=== PATIENT | female | born 1980 | race Caucasian/White ===

== ENCOUNTER 2022-12-28 08:53 | Outpatient (OUT) | payer BC, SELFPAY ==
[2022-12-28 09:15] LABS: Basophils Absolute Auto 0.1 10^3/uL (0.0-0.1); Basophils Percent Auto 0.6 % (0.2-2.0); Eosinophils Absolute Auto 0.2 10^3/uL (0.0-0.7); Eosinophils Percent Auto 2.2 % (0.9-7.0); Hematocrit 43.9 % (36.0-48.0); Immature Granulocytes Abs Auto 0.02 10^3/uL (0.00-0.03); Immature Granulocytes Pct Auto 0.2 % (0.0-0.5); Lymphocytes Absolute Auto 3.6 10^3/uL (1.2-3.8); Lymphocytes Percent Auto 44.2 % (20.5-60.0); Mean Corpuscular HGB Conc 34.2 g/dL (29.9-35.2); Mean Corpuscular Hemoglobin 28.8 pg (26.7-34.0); Mean Corpuscular Volume 84.3 fL (81.0-99.0); Mean Platelet Volume 10.2 fL (9.5-13.5); Monocytes Absolute Auto 0.4 10^3/uL (0.3-0.8); Monocytes Percent Auto 5.1 % (1.7-12.0); Neutrophils Absolute Auto 3.8 10^3/uL (1.4-6.5); Neutrophils Percent Auto 47.7 % (43.0-75.0); Platelet Count 244 10^3/uL (150-450); Red Blood Count 5.21 10^6/uL (4.20-5.40); Red Cell Distribution Width 12.8 % (11.0-15.0)
[2022-12-28 10:08] LABS: Alanine Aminotransferase 22 U/L (14-59); Albumin Globulin Ratio 0.9; Albumin Level 3.8 g/dL (3.4-5.0); Alkaline Phosphatase 77 U/L (46-116); Anion Gap 12.3; Aspartate Amino Transferase 16 U/L (15-37); BUN Creatinine Ratio 13.2; Bilirubin Total 0.6 mg/dL (0.2-1.0); Calcium 9.1 mg/dL (8.5-10.1); Chloride 102 mmol/L (98-107); Chol HDL Ratio 4.7; Cholesterol 214 mg/dL (<=200); Estimated GFR (African America >60 (>=60); Estimated GFR (Non-African Ame >60 (>=60); Glucose 99 mg/dL (74-106); HDL Cholesterol 46 mg/dL (40-60); Potassium 4.3 mmol/L (3.5-5.1); Sodium 136 mmol/L (136-145); Thyroid Stimulating Hormone 1.067 uIU/mL (0.358-3.740); Total Protein 7.8 g/dL (6.4-8.2); Triglycerides 349 mg/dL (<=150); VLDL CHOLESTEROL 69.8 mg/dL
[2022-12-28 12:10] LABS: Estimated Average Glucose 100 mg/dL; Glycohemoglobin A1C 5.1 % (4.5-6.2)
== END 2022-12-28 08:54 | disposition home or self-care (01) ==
LOC: LAB 08:53
PROVIDERS: PCP Family Medicine; Visit Provider Family Medicine
DX: Z00.00 Encounter for general adult medical examination without abnormal findings (principal)
CPT/HCPCS: 36415; 80053; 80061; 83036; 84443; 85025

== ENCOUNTER 2023-02-12 10:50 | Outpatient (OUT) | payer BC, SELFPAY ==
--- NOTE | 2023-02-12 | MM_ITS ---
Patient: FER PRATER Exam Date: 02/12/2023 : 1980 Gender:F Ordering : DR Ronel Molina M.D. Admission #: [id number] Family : Order #: [id number] CLICK HERE TO VIEW EXAM RADIOLOGY REPORT PROCEDURE: MM TOMOSYNTHESIS SCREENING BI COMPARISON: MAMMO POST BIOPSY RIGHT, 09/14/2021. MG MAMM DX 3D RT CAD, 04/25/2022. INDICATIONS: Z12.31 Calculator Name NCI Breast Cancer Risk Assessment Tool 5 Year Breast Cancer Risk 2.90% Lifetime Breast Cancer Risk 29.10% Personal Breast Cancer No Personal Ovarian Cancer No Treatments None Family Cancers Mother with breast cancer at age 72; Aunt-maternal with breast cancer at age 54; Aunt-maternal with pancreatic cancer at age 65. LOCATION: [facility] BREAST COMPOSITION: Extremely dense, which lowers the sensitivity of mammography. FINDINGS: DIAGNOSTIC CATEGORY 2--BENIGN FINDING. NO CHANGE FROM COMPARISON. Scattered benign-appearing calcifications are present. Scattered benign-appearing lymph nodes are present. RIGHT BREAST: No significant suspicious finding. LEFT BREAST: No significant suspicious finding. RECOMMENDATIONS: ROUTINE MAMMOGRAM AND CLINICAL EVALUATION IN 12 MONTHS. PLEASE NOTE: A NORMAL MAMMOGRAM DOES NOT EXCLUDE THE POSSIBILITY OF BREAST CANCER. A CLINICALLY SUSPICIOUS PALPABLE LUMP SHOULD BE BIOPSIED. Dictated by: Elliott Christianson MD on 02/12/2023 at 13:03 Approved by: Elliott Christianson MD on 02/12/2023 at 13:15
== END 2023-02-12 10:51 | disposition home or self-care (01) ==
LOC: MAMMO 10:50
PROVIDERS: PCP Family Medicine; Visit Provider Family Medicine
DX: Z12.31 Encounter for screening mammogram for malignant neoplasm of breast (principal); Z80.3 Family history of malignant neoplasm of breast; Z80.0 Family history of malignant neoplasm of digestive organs
CPT/HCPCS: 77063; 77067

== ENCOUNTER 2024-03-13 08:56 | Outpatient (OUT) | payer OTHER, SELFPAY ==
--- NOTE | 2024-03-13 09:00 | MM_ITS ---
Patient Name: FER PRATER MR#: [id number] : 1980 Exam Date: 03/13/2024 Ordering Doctor: DR Ronel Molina M.D. RADIOLOGY REPORT PROCEDURE: MM TOMOSYNTHESIS SCREENING BI COMPARISON: MG MAMM DX 3D RT CAD, 04/25/2022. MM TOMOSYNTHESIS SCREENING BI, 02/12/2023. INDICATIONS: Screening Calculator Name NCI Breast Cancer Risk Assessment Tool 5 Year Breast Cancer Risk 3.50% Lifetime Breast Cancer Risk 28.30% Personal Breast Cancer No Personal Ovarian Cancer No Treatments None Family Cancers Mother with breast cancer at age 72; Aunt-maternal with breast cancer at age 54; Aunt-maternal with pancreatic cancer at age 65. LOCATION: [facility] BREAST COMPOSITION: The breasts are extremely dense, which lowers the sensitivity of mammography. FINDINGS: DIAGNOSTIC CATEGORY 2--BENIGN FINDING. NO CHANGE FROM COMPARISON. Scattered benign-appearing calcifications are present. Scattered benign-appearing lymph nodes are present. RIGHT BREAST: No significant suspicious finding. LEFT BREAST: No significant suspicious finding. RECOMMENDATIONS: ROUTINE MAMMOGRAM AND CLINICAL EVALUATION IN 12 MONTHS. PLEASE NOTE: A NORMAL MAMMOGRAM DOES NOT EXCLUDE THE POSSIBILITY OF BREAST CANCER. A CLINICALLY SUSPICIOUS PALPABLE LUMP SHOULD BE BIOPSIED. Dictated by: Elliott Christianson MD on 03/13/2024 at 10:22 Approved by: Elliott Christianson MD on 03/13/2024 at 10:29
== END 2024-03-13 08:57 | disposition home or self-care (01) ==
LOC: MAMMO 08:56
PROVIDERS: PCP Family Medicine; Visit Provider Family Medicine
DX: Z12.31 Encounter for screening mammogram for malignant neoplasm of breast (principal); Z80.3 Family history of malignant neoplasm of breast; Z80.8 Family history of malignant neoplasm of other organs or systems
CPT/HCPCS: 77063; 77067

== ENCOUNTER 2024-03-23 08:32 | Emergency (ER) | payer OTHER, SELFPAY ==
[2024-03-23 08:35] VITALS: BP 134/89; PULSE 118; TEMP 37.1; O2SAT 100; BMI 29.0
--- OUTSIDE RECORDS SUMMARY | 2024-03-23 08:54 | XMS_ITS | CCD ---
Author Organization [facility] Care Team Providers Care Health Physics Technician Name Role Phone DR RONEL MOLINA Attending Unavailable Odell, DR Santiago Consulting Unavailable TRACY, DR RONEL Nugent Primary Care Unavailable TRACY, DR RONEL Nugent Admitting Unavailable TRACY, DR RONEL Nugent Consulting Unavailable TRACY, DR RONEL Nugent Admitting Unavailable TRACY, DR RONEL Nugent Attending Unavailable Odell, DR Santiago Consulting Unavailable TRACY, DR RONEL Nugent Primary Care Unavailable TRACY, DR RONEL Nugent Consulting Unavailable TRACY, DR RONEL Nugent Referring Unavailable TRACY, DR RONEL Nugent Attending Unavailable Odell, DR Santiago Consulting Unavailable TRACY, DR RONEL Nugent Primary Care Unavailable TRACY, DR RONEL Nugent Admitting Unavailable TRACY, DR RONEL Nugent Consulting Unavailable Medications Current Medications Medication Drug Class(es) Dates Sig (Normalized) Sig (Original) ibuprofen 800 mg oral tablet (1 source) Nonsteroidal Anti-inflammatory Drug Start: 02-28-2024 take 1 tablet by mouth every eight hours at mealtime as needed Ibuprofen Active 1 TAB PO Every 8 hours February 28, 2024 12:00am FreeTextSi tablet with food or milk as needed Orally every 8 hrs; Note: Source Status: Start; Refills: 2; Provider: Tracy Nugent Diiozkpiqtqp-Fi-Ai on-Minerals (Women's Daily Formula) 27-0.4 mg tablet (1 source) Start: 02-28-2024 take 1 tablet by mouth once daily Ohiofygcsseb-Mb-E geovany-Minerals (Women's Daily Formula) 27-0.4 mg tablet Active TAB PO February 28, 2024 12:00am Problems Active Problems Problem Classification Problem Date Documented Da te Episodic/Chronic Other screening for suspected conditions (not mental disorders or infectious disease) (6 sources) Other abnormal and inconclusive findings on diagnostic imaging of breast; Translations: [Patient encounter status] Onset: 04-25-2022 Episodic Past or Other Problems Problem Classification Problem Date Documented Da te Episodic/Chronic Nonmalignant breast conditions (6 sources) Disorder of breast, unspecified; Translations: [Other specified disorders of breast] Onset: 09-12-2021 Episodic Results Test Name Value Interpretation Reference Range Facil ity MG MAMM DX 3D RT CADon 04-25 MG MAMM DX 3D RT CAD Patient: FER PRATER Exam Date: 04/25/2022 : 1980 Gender:F Ordering : DR RONEL MOLINA M.D. Admission #: [id number] Family : Order #: [id number] CLICK HERE TO VIEW EXAM RADIOLOGY REPORT PROCEDURE: MAMMOGRAM DIAGNOSTIC 3D RIGHT CAD, 04/25/2022, 13:46 ULTRASOUND BREAST RIGHT LIMITED, 04/25/2022, 14:36 COMPARISON: US BREAST RIGHT LIMITED, 09/08/2021. MG MAMM DIAGNOSTIC 3D TATE CAD, 09/08/2021. US BREAST RIGHT LIMITED, 07/14/2015. MAMMO POST BIOPSY RIGHT, 09/14/2021. INDICATIONS: Abnormal findings on diagnostic imaging of breast Calculator Name NCI Breast Cancer Risk Assessment Tool 5 Year Breast Cancer Risk 2.90% Lifetime Breast Cancer Risk 29.10% Personal Breast Cancer No Personal Ovarian Cancer No Treatments None Family Cancers Mother with breast cancer at age 72; Aunt-maternal with breast cancer at age 54; Aunt-maternal with pancreatic cancer at age 65. LOCATION: [facility] BREAST COMPOSITION: Extremely dense, which lowers the sensitivity of mammography. FINDINGS: DIAGNOSTIC CATEGORY 2--BENIGN FINDING: RIGHT BREAST: No significant suspicious finding. Stable biopsy marker clip within the lower-outer quadrant Ultrasound evaluation demonstrates a stable hypoechoic cyst and adjacent hypoechoic lesion/complex cyst with biopsy marker clip; not appreciably changed. Pathology was benign. Annual screening mammography recommended. RECOMMENDATIONS: ROUTINE MAMMOGRAM AND CLINICAL EVALUATION IN 12 MONTHS. PLEASE NOTE: A NORMAL MAMMOGRAM DOES NOT EXCLUDE THE POSSIBILITY OF BREAST CANCER. A CLINICALLY SUSPICIOUS PALPABLE LUMP SHOULD BE BIOPSIED. Dictated by: Jack Bain M.D. on 04/25/2022 at 14:53 Approved by: Jack Bain M.D. on 04/25/2022 at 14:56 Normal [facility] US BREAST RIGHT LIMITEDon US BREAST RIGHT LIMITED Patient: FER PRATER Exam Date: 04/25/2022 : 1980 Gender:F Ordering : DR RONEL MOLINA M.D. Admission #: [id number] Family : Order #: [id number] CLICK HERE TO VIEW EXAM RADIOLOGY REPORT PROCEDURE: MAMMOGRAM DIAGNOSTIC 3D RIGHT CAD, 04/25/2022, 13:46 ULTRASOUND BREAST RIGHT LIMITED, 04/25/2022, 14:36 COMPARISON: US BREAST RIGHT LIMITED, 09/08/2021. MG MAMM DIAGNOSTIC 3D TATE CAD, 09/08/2021. US BREAST RIGHT LIMITED, 07/14/2015. MAMMO POST BIOPSY RIGHT, 09/14/2021. INDICATIONS: Abnormal findings on diagnostic imaging of breast Calculator Name NCI Breast Cancer Risk Assessment Tool 5 Year Breast Cancer Risk 2.90% Lifetime Breast Cancer Risk 29.10% Personal Breast Cancer No Personal Ovarian Cancer No Treatments None Family Cancers Mother with breast cancer at age 72; Aunt-maternal with breast cancer at age 54; Aunt-maternal with pancreatic cancer at age 65. LOCATION: [facility] BREAST COMPOSITION: Extremely dense, which lowers the sensitivity of mammography. FINDINGS: DIAGNOSTIC CATEGORY 2--BENIGN FINDING: RIGHT BREAST: No significant suspicious finding. Stable biopsy marker clip within the lower-outer quadrant Ultrasound evaluation demonstrates a stable hypoechoic cyst and adjacent hypoechoic lesion/complex cyst with biopsy marker clip; not appreciably changed. Pathology was benign. Annual screening mammography recommended. RECOMMENDATIONS: ROUTINE MAMMOGRAM AND CLINICAL EVALUATION IN 12 MONTHS. PLEASE NOTE: A NORMAL MAMMOGRAM DOES NOT EXCLUDE THE POSSIBILITY OF BREAST CANCER. A CLINICALLY SUSPICIOUS PALPABLE LUMP SHOULD BE BIOPSIED. Dictated by: Jack Bain M.D. on 04/25/2022 at 14:53 Approved by: Jack Bain M.D. on 04/25/2022 at 14:56 Normal [facility] MAMMO POST BIOPSY RIGHTon MAMMO POST BIOPSY RIGHT Patient: FER PRATER Exam Date: 09/14/2021 : 1980 Gender:F Ordering : DR RONEL MOLINA M.D. Admission #: [id number] Family : Order #: [id number] CLICK HERE TO VIEW EXAM This report includes an Addendum and supersedes previous reports for this exam. RADIOLOGY REPORT PROCEDURE: MAMMOGRAM POST BIOPSY IMAGES COMPARISON: Ultrasound right breast August 31, 2021, ultrasound right breast biopsy August 16, 2021, diagnostic mammography September 08, 2021. INDICATIONS: Mammographic breast mass BREAST COMPOSITION: Extremely dense, which lowers the sensitivity of mammography. FINDINGS: BIOPSY MARKER: A metallic marker has been placed in the targeted location within the lower-outer quadrant of the right breast. BREAST FINDINGS: Expected post biopsy findings. RECOMMENDATIONS: Dictated by: Jack Bain M.D. on 09/14/2021 at 10:09 Approved by: Jack Bain M.D. on 09/14/2021 at 10:10 ADDENDUM: FINDINGS: DIAGNOSTIC CATEGORY 3--PROBABLY BENIGN FINDING. THE FOLLOWING FINDING(S) HAS A HIGH PROBABILITY OF A BENIGN ETIOLOGY: RECOMMENDATIONS: SHORT TERM FOLLOW-UP DIAGNOSTIC MAMMOGRAM RIGHT BREAST IN 6 MONTHS. Dictated by: Jack Bain M.D. on 09/20/2021 at 12:07 Approved by: Jack Bain M.D. on 09/20/2021 at 12:07 Normal [facility] US VAC ASST BX BRST RT W CLI Riley 09-14-2021 US VAC ASST BX BRST RT W CLIP Patient: FER PRATER Exam Date: 09/14/2021 : 1980 Gender:F Ordering : DR RONEL MOLINA M.D. Admission #: [id number] Family : Order #: [id number] CLICK HERE TO VIEW EXAM This report includes an Addendum and supersedes previous reports for this exam. RADIOLOGY REPORT PROCEDURE: ULTRASOUND BIOPSY VACCUUM ASSISTED RIGHT WITH CLIP COMPARISON: Ultrasound breast right limited September 08, 2021 INDICATIONS: Mammographic breast mass DESCRIPTION: After obtaining informed consent, a vacuum assisted ultrasound-guided biopsy was performed in the usual sterile manner. The location of the biopsy was then marked as indicated below. FINDINGS: RECOMMENDATIONS: SPECIMEN #, LOCATION: 5 core specimens; right breast 8 o'clock complex cyst. BIOPSY NEEDLE: 13 gauge Elite (r) vacuum core biopsy needle. MARKERS(S) PLACED: A single metallic marker was placed in the appropriate targeted location. MEDICATION: Buffered 1% lidocaine with epinephrine administered locally. COMPLICATIONS: None. PATHOLOGY LAB: Pending. CONCLUSION: 1. Uneventful ultrasound-guided breast biopsy. 2. Pathology results are pending. 3. Biopsy marker clip is approximately 1.5 cm away from the biopsied lesion, which is still readily visible (clip moved away from lesion when pressure was released from breast tissue). An addendum to this report will be provided after pathology results are available. Dictated by: Jack Bain M.D. on 09/14/2021 at 10:11 Approved by: Jack Bain M.D. on 09/14/2021 at 10:14 ADDENDUM: Final pathologic diagnosis: Negative for malignancy. Breast parenchyma with fibrocystic change and associated microcalcifications. This report was transmitted to the referring physician's office on September 19, 2021, and the office called to confirm receipt. Dictated by: Jack Bain M.D. on 09/20/2021 at 12:05 Approved by: Jack Bain M.D. on 09/20/2021 at 12:06 Normal [facility] CBC AUTO DIFFon 09-08-2021 BASO # 0.1 103/ul Normal 0.0-0.1 [facility] Comment on above: Performed By: #### T SH, CMP, LIPID #### [facility] [address] [address] [address] Valery Walker Basophils/100 WBC (Bld) 0.6 % Normal 0.2-2.0 [facility] Comment on above: Performed By: #### T SH, CMP, LIPID #### [facility] [address] [address] [address] Valery Walker EO # 0.2 103/ul Normal 0.0-0.7 [facility] Comment on above: Performed By: #### T SH, CMP, LIPID #### [facility] [address] [address] [address] Valery Walker Eosinophils/100 WBC (Bld) 2.8 % Normal 0.9-7.0 [facility] Comment on above: Performed By: #### T SH, CMP, LIPID #### [facility] [address] [address] [address] Valery Walker Erythrocyte distribution width (RBC) [Ratio] 13.6 % Normal 11.0-15.0 [facility] Comment on above: Performed By: #### T SH, CMP, LIPID #### [facility] [address] [place] [address] Dr. Valery Walker Hematocrit (Bld) [Volume fraction] 43.1 % Normal 36.0-48.0 [facility] Comment on above: Performed By: #### T SH, CMP, LIPID #### [facility] [address] [place] [address] Dr. Valery Walker Hemoglobin (Bld) [Mass/Vol] 14.1 g/dL Normal 12.0-16.0 [facility] Comment on above: Performed By: #### T SH, CMP, LIPID #### [facility] [address] [place] [address] Dr. Valery Walker IG # 0.02 10e3/ul Normal 0.00-0.03 [facility] Comment on above: Performed By: #### T SH, CMP, LIPID #### [facility] [address] [place] [address] Dr. Valery Walker IG % 0.3 % Normal 0.0-0.5 [facility] Comment on above: Performed By: #### T SH, CMP, LIPID #### [facility] [address] [place] [address] Dr. Valery Walker LYMPH # 3.4 103/ul Normal 1.2-3.8 [facility] Comment on above: Performed By: #### T SH, CMP, LIPID #### [facility] [address] [place] [address] Dr. Valery Walker Lymphocytes/100 WBC (Bld) 43.2 % Normal 20.5-60.0 [facility] Comment on above: Performed By: #### T SH, CMP, LIPID #### [facility] [address] [place] [address] Dr. Valery Walker MANUAL DIFF REQ NO Normal [facility] Comment on above: Performed By: #### T SH, CMP, LIPID #### [facility] [address] [place] [address] Dr. Valery Walker MCH (RBC) [Entitic mass] 28.0 pg Normal 26.7-34.0 [facility] Comment on above: Performed By: #### T SH, CMP, LIPID #### [facility] [address] [place] [address] Dr. Valery Walker MCHC (RBC) [Mass/Vol] 32.7 g/dL Normal 29.9-35.2 [facility] Comment on above: Performed By: #### T SH, CMP, LIPID #### [facility] [address] [place] [address] Dr. Valery Walker MCV (RBC) [Entitic vol] 85.5 fL Normal 81.0-99.0 [facility] Comment on above: Performed By: #### T SH, CMP, LIPID #### [facility] [address] [place] [address] Dr. Valery Walker MONO # 0.4 103/ul Normal 0.3-0.8 [facility] Comment on above: Performed By: #### T SH, CMP, LIPID #### [facility] [address] [place] [address] Dr. Valery Walker Monocytes/100 WBC (Bld) 4.7 % Normal 1.7-12.0 [facility] Comment on above: Performed By: #### T SH, CMP, LIPID #### [facility] [address] [place] [address] Dr. Valery Walker NEUT # 3.8 103/ul Normal 1.4-6.5 [facility] Comment on above: Performed By: #### T SH, CMP, LIPID #### [facility] [address] [place] [address] Dr. Valery Walker Neutrophils/100 WBC (Bld) 48.4 % Normal 43.0-75.0 [facility] Comment on above: Performed By: #### T SH, CMP, LIPID #### [facility] [address] [place] [address] Dr. Valery Walker Platelet mean volume (Bld) [Entitic vol] 10.3 fL Normal 9.5-13.5 [facility] Comment on above: Performed By: #### T SH, CMP, LIPID #### [facility] [address] [address] [address] Valery Walker PLT 286 103/ul Normal 150-450 [facility] Comment on above: Performed By: #### T SH, CMP, LIPID #### [facility] [address] [place] [address] Dr. Valery Walker RBC 5.04 106/ul Normal 4.20-5.40 [facility] Comment on above: Performed By: #### T SH, CMP, LIPID #### [facility] [address] [place] [address] Dr. Valery Walker WBC 7.9 103/ul Normal 4.0-11.0 [facility] Comment on above: Performed By: #### T SH, CMP, LIPID #### [facility] [address] [place] [address] Dr. Valery Walker GLYCOHEMOGLOBIN A1Con 2021 ADA RECOMMENDATION SEE BELOW Normal [facility] Comment on above: Result Comment: ADA RECOMMENDED LIMIT 4.0 - 6.0 ADA THERAPEUTIC TARGET < 7.0 ACTION SUGGESTED > 7.0 Performed By: #### A 1C #### [facility] [address] [place] [address] Dr. Valery Walker Glucose [Mass/Vol] 108 mg/dL Normal [facility] Comment on above: Performed By: #### A 1C #### [facility] [address] [place] [address] Dr. Valery Walker HbA1c (Bld) [Mass fraction] 5.4 % Normal 4.5-6.2 [facility] Comment on above: Performed By: #### A 1C #### [facility] [address] [place] [address] Dr. Valery Walker LIPID PROFILEon 09-08-2021 CHOL-HDL RATIO NORM SEE BELOW Normal [facility] Comment on above: Result Comment: 3.3 - 4.4 LOW RISK 4.4 - 7.1 AVERAGE RISK 7.1 - 11.0 MODERATE RISK >11.0 HIGH RISK Performed By: #### T SH, CMP, LIPID #### [facility] [address] [address] [address] Valery Walker Cholesterol [Mass/Vol] 191 mg/dL Normal <=200 [facility] Comment on above: Performed By: #### T SH, CMP, LIPID #### [facility] [address] [address] [address] Valery Walker Cholesterol in HDL [Mass/Vol] 56 mg/dL Normal 40-60 [facility] Comment on above: Performed By: #### T SH, CMP, LIPID #### [facility] [address] [address] [address] Valery Walker Cholesterol in LDL [Mass/Vol] 115.6 mg/dL Normal [facility] Comment on above: Performed By: #### T SH, CMP, LIPID #### [facility] [address] [address] [address] Valery Walker Cholesterol.total/Cho lesterol in HDL [Mass ratio] 3.4 {ratio} Normal [facility] Comment on above: Performed By: #### T SH, CMP, LIPID #### [facility] [address] [address] [address] Valery Walker HDL NORMAL > or = 60 mg/dl - LOW CARDIOVASCULAR RISK <40 mg/dl - HIGH CARDIOVASCULAR RISK Normal [facility] Comment on above: Performed By: #### T SH, CMP, LIPID #### [facility] [address] [address] [address] Valery Walker LDL CALC NORMAL SEE BELOW Normal [facility] Comment on above: Result Comment: <100 mg/dl OPTIMAL 100 - 129 mg/dl NEAR OR ABOVE OPTIMAL 130 - 159 mg/dl BORDERLINE HIGH 160 - 189 mg/dl HIGH >190 mg/dl VERY HIGH Performed By: #### T SH, CMP, LIPID #### [facility] [address] [address] [address] Valery Walker Triglyceride [Mass/Vol] 97 mg/dL Normal <=150 [facility] Comment on above: Performed By: #### T SH, CMP, LIPID #### [facility] [address] [address] [address] Valery Walker VLDL CALC 19.4 mg/dL Normal [facility] Comment on above: Performed By: #### T SH, CMP, LIPID #### [facility] [address] [address] [address] Valery Walker MG MAMM DIAGNOSTIC 3D TATE CA Don 09-08-2021 MG MAMM DIAGNOSTIC 3D TATE CAD Patient: FER PRATER Exam Date: 09/08/2021 : 1980 Gender:F Ordering : DR RONEL MOLINA M.D. Admission #: [id number] Family : Order #: [id number] CLICK HERE TO VIEW EXAM RADIOLOGY REPORT PROCEDURE: MAMMOGRAM DIAGNOSTIC 3D BILATERAL CAD, 09/08/2021, 10:34 ULTRASOUND BREAST RIGHT LIMITED, 09/08/2021, 11:12 COMPARISON: MG MAMM SCREEN TATE W CAD, 04/02/2019. INDICATIONS: Lump in right breast Calculator Name NCI Breast Cancer Risk Assessment Tool 5 Year Breast Cancer Risk 1.00% Lifetime Breast Cancer Risk 18.90% Personal Breast Cancer No Personal Ovarian Cancer No Treatments None Family Cancers Mother with breast cancer at age 72; Aunt-maternal with breast cancer at age 54; Aunt-maternal with pancreatic cancer at age 65. LOCATION: [facility] BREAST COMPOSITION: Extremely dense, which lowers the sensitivity of mammography. FINDINGS: DIAGNOSTIC CATEGORY 4--SUSPICIOUS FOR MALIGNANCY. FINDING DOES NOT EXHIBIT CLASSIC FINDINGS OF BREAST CANCER: RIGHT BREAST: Skin surface marker over the lower outer mid breast localizes the patient's palpable lump. No abnormal mammographic findings in this area. At approximately the 4 o'clock position there are benign-appearing subcutaneous lymph nodes. Ultrasound evaluation demonstrates a complex slightly irregular and thick walled cystic structure at the 8 o'clock position, 7.8 cm from the nipple, 9 x 5 x 5 millimeters in size. Ultrasound-guided biopsy is recommended. Findings, recommendations, and alternatives were discussed with the patient. Our radiology department nurse is working with the patient to schedule biopsy. LEFT BREAST: No significant suspicious finding. RECOMMENDATIONS: ULTRASOUND-GUIDED CORE BIOPSY: RIGHT BREAST PLEASE NOTE: A NORMAL MAMMOGRAM DOES NOT EXCLUDE THE POSSIBILITY OF BREAST CANCER. A CLINICALLY SUSPICIOUS PALPABLE LUMP SHOULD BE BIOPSIED. Dictated by: Jack Bain M.D. on 09/08/2021 at 13:19 Approved by: Jack Bain M.D. on 09/08/2021 at 13:59 Normal [facility] PROF 14(COMP METB)on 022 Albumin [Mass/Vol] 3.8 g/dL Normal 3.4-5.0 [facility] Comment on above: Performed By: #### T SH, CMP, LIPID #### [facility] [address] [address] [address] Valery Walker Albumin/Globulin [Mass ratio] 0.9 {ratio} Normal [facility] Comment on above: Performed By: #### T SH, CMP, LIPID #### [facility] [address] [address] [address] Valery Walker ALP [Catalytic activity/Vol] 71 U/L Normal 46-116 [facility] Comment on above: Performed By: #### T SH, CMP, LIPID #### [facility] [address] [address] [address] Valery Walker ALT [Catalytic activity/Vol] 15 U/L Normal 14-59 [facility] Comment on above: Performed By: #### T SH, CMP, LIPID #### [facility] [address] [address] [address] Valery Walker Anion gap [Moles/Vol] 13.3 mmol/L Normal [facility] Comment on above: Performed By: #### T SH, CMP, LIPID #### [facility] [address] [address] [address] Valery Walker AST [Catalytic activity/Vol] 12 U/L Critically low 15-37 [facility] Comment on above: Performed By: #### T SH, CMP, LIPID #### [facility] [address] [address] [address] Valery Walker Bilirubin [Mass/Vol] 0.5 mg/dL Normal 0.2-1.0 [facility] Comment on above: Performed By: #### T SH, CMP, LIPID #### [facility] [address] [address] [address] Valery Walker Calcium [Mass/Vol] 8.6 mg/dL Normal 8.5-10.1 [facility] Comment on above: Performed By: #### T SH, CMP, LIPID #### [facility] [address] [place] [address] Dr. Valery Walker Chloride [Moles/Vol] 104 mmol/L Normal 98-107 [facility] Comment on above: Performed By: #### T SH, CMP, LIPID #### [facility] [address] [place] [address] Dr. Valery Walker CO2 [Moles/Vol] 25.4 mmol/L Normal 21.0-32.0 [facility] Comment on above: Performed By: #### T SH, CMP, LIPID #### [facility] [address] [place] [address] Dr. Valery Walker Creatinine [Mass/Vol] 0.67 mg/dL Normal 0.55-1.02 [facility] Comment on above: Performed By: #### T SH, CMP, LIPID #### [facility] [address] [place] [address] Dr. Valery Walker EGFR-AF INDIAN >60 Normal >=60 [facility] Comment on above: Performed By: #### T SH, CMP, LIPID #### [facility] [address] [place] [address] Dr. Valery Walker EGFR-NON AF INDIAN >60 Normal >=60 [facility] Comment on above: Performed By: #### T SH, CMP, LIPID #### [facility] [address] [place] [address] Dr. Valery Walker Globulin (S) [Mass/Vol] 4.0 g/dL Normal [facility] Comment on above: Performed By: #### T SH, CMP, LIPID #### [facility] [address] [place] [address] Dr. Valery Walker Glucose [Mass/Vol] 99 mg/dL Normal 74-106 [facility] Comment on above: Performed By: #### T SH, CMP, LIPID #### [facility] [address] [place] [address] Dr. Valery Walker Potassium [Moles/Vol] 4.7 mmol/L Normal 3.5-5.1 [facility] Comment on above: Performed By: #### T SARITA CMP, LIPID #### [facility] [address] [address] [address] Valery Walker Protein [Mass/Vol] 7.8 g/dL Normal 6.1-8.2 [facility] Comment on above: Performed By: #### T SH CMP, LIPID #### [facility] [address] [address] [address] Valery Walker Sodium [Moles/Vol] 138 mmol/L Normal 136-145 [facility] Comment on above: Performed By: #### T SARITA CMP, LIPID #### [facility] [address] [place] [address] Dr. Valery Walker Urea nitrogen [Mass/Vol] 14.0 mg/dL Normal 7.0-18.0 [facility] Comment on above: Performed By: #### T SARITA CMP, LIPID #### [facility] [address] [place] [address] Dr. Valery Walker Urea nitrogen/Creatinine [Mass ratio] 20.9 mg/mg Normal [facility] Comment on above: Performed By: #### T SARITA CMP, LIPID #### [facility] [address] [place] [address] Dr. Valery Walker TSHon 09-08-2021 TSH 1.292 uIU/mL Normal 0.470-4.680 [facility] Comment on above: Performed By: #### T SARITA CMP, LIPID #### [facility] [address] [place] [address] Dr. Valery Walker TSH RANGE SEE BELOW Normal [facility] Comment on above: Result Comment: <0.3 4 UIU/ml HYPERTHYROID 0.34-5.60 UIU/ml EUTHYROID >5.60 UIU/ml HYPOTHYROID Performed By: #### T SARITA CMP, LIPID #### [facility] [address] [place] [address] Dr. Valery Walker US BREAST RIGHT LIMITEDon US BREAST RIGHT LIMITED Patient: FER PRATER Exam Date: 09/08/2021 : 1980 Gender:F Ordering : DR RONEL MOLINA M.D. Admission #: [id number] Family : Order #: [id number] CLICK HERE TO VIEW EXAM RADIOLOGY REPORT PROCEDURE: MAMMOGRAM DIAGNOSTIC 3D BILATERAL CAD, 09/08/2021, 10:34 ULTRASOUND BREAST RIGHT LIMITED, 09/08/2021, 11:12 COMPARISON: MG MAMM SCREEN TATE W CAD, 04/02/2019. INDICATIONS: Lump in right breast Calculator Name NCI Breast Cancer Risk Assessment Tool 5 Year Breast Cancer Risk 1.00% Lifetime Breast Cancer Risk 18.90% Personal Breast Cancer No Personal Ovarian Cancer No Treatments None Family Cancers Mother with breast cancer at age 72; Aunt-maternal with breast cancer at age 54; Aunt-maternal with pancreatic cancer at age 65. LOCATION: [facility] BREAST COMPOSITION: Extremely dense, which lowers the sensitivity of mammography. FINDINGS: DIAGNOSTIC CATEGORY 4--SUSPICIOUS FOR MALIGNANCY. FINDING DOES NOT EXHIBIT CLASSIC FINDINGS OF BREAST CANCER: RIGHT BREAST: Skin surface marker over the lower outer mid breast localizes the patient's palpable lump. No abnormal mammographic findings in this area. At approximately the 4 o'clock position there are benign-appearing subcutaneous lymph nodes. Ultrasound evaluation demonstrates a complex slightly irregular and thick walled cystic structure at the 8 o'clock position, 7.8 cm from the nipple, 9 x 5 x 5 millimeters in size. Ultrasound-guided biopsy is recommended. Findings, recommendations, and alternatives were discussed with the patient. Our radiology department nurse is working with the patient to schedule biopsy. LEFT BREAST: No significant suspicious finding. RECOMMENDATIONS: ULTRASOUND-GUIDED CORE BIOPSY: RIGHT BREAST PLEASE NOTE: A NORMAL MAMMOGRAM DOES NOT EXCLUDE THE POSSIBILITY OF BREAST CANCER. A CLINICALLY SUSPICIOUS PALPABLE LUMP SHOULD BE BIOPSIED. Dictated by: Jack Bain M.D. on 09/08/2021 at 13:19 Approved by: Jack Bain M.D. on 09/08/2021 at 13:59 Normal [facility] Vital Signs Date Time Vital Sign Value Performing Clinician [place] mclain 02-28-2024 09:07-0400 Body height 172.[address] [facility] 02-28-2024 09:07-0400 Body mass index (BMI) [Ratio] 29.7 kg/m2 [facility] 02-28-2024 09:07-0400 Body weight 88.[address] [facility] 02-28-2024 09:07-0400 Diastolic blood pressure 85 mm[Hg] [facility] 02-28-2024 09:07-0400 Heart rate 97 /min [facility] 02-28-2024 09:07-0400 Systolic blood pressure 134 mm[Hg] [facility] Encounters Encounter Date Encounter Type Care Provider Facility Start: 02-28-2024 Patient encounter status [facility] Start: 02-28-2024 End: 02-28-2024 ambulatory [facility] Work Phone: Start: 02-28-2024 End: 02-28-2024 Encounter for general adult medical examination without abnormal findings [facility] Start: 02-28-2024 End: 02-28-2024 Patient encounter procedure Count Includes [facility] Physician [facility] Work Phone: Start: 04-25-2022 End: 04-26-[address] RONEL MOLINA Facility:[facility] Start: 09-14-2021 End: 09-14-[address] RONEL MOLINA Facility:[facility] Start: 09-12-2021 Encounter for genera l adult medical examination without abnormal findings DR RONEL MOLINA [facility] Start: 09-08-2021 End: 09-09-[address] RONEL MOLINA Facility:[facility] Start: 09-08-2021 End: 09-09-2021 Encounter for general adult medical examination without abnormal findings DR RONEL MOLINA Facility:[facility] Plan of Treatment Date Care Activity Detail Author MG Breast - bilateral Screening [facility] Payers Date Payer Category Payer Unknown [id number] 1980 Unknown [id number] 1980 Unknown [id number] 1980 Unknown [id number] Private Health Insurance [employer] [id number] Social History Date Type Detail Facility Start: 02-28-2024 Tobacco smoking stat us NHIS Never smoked tobacco (finding) [facility] Start: 1980 Sex Assigned At Female F [facility] Evaluation note Note Date & Type Note Facility Evaluation note Diagnosis Onset Date Screening mammogram for breast cancer acute Wellness examination acute [facility] Work Phone: Summary Purpose Family History Relationship Condition Age at Onset Recorded Date/T george father Diabetes mellitus Unknown Unknown Hypertension Unknown mother Malignant neoplasm Unknown Advance Directives Advance Directive Response Recorded Date/ Time Advance Directives No February 28, 2024 8:52am Chief Complaint and Reason for Visit Chief Complaint wellness Reason for Visit Screening mammogram for breast cancer Wellness examination Additional Source Comments INFORMATION SOURCE (unrecogn ized section and content) DATE CREATED AUTHOR 05/05/2022 [facility] Care Teams (unrecognized sec tion and content) Team Status: Active Member Role Status Dates Ronel Molina MD Primary Care Provider Active Team Status: Inactive Member Role Status Dates Ronel Molina MD Primary Care Provide r, Attending Provider Active Start: February 28, 2024 End: February 28, 2024 Goals (unrecognized section and content) Goals may be documented in a n alternate section FOR RECORDS PERTAINING TO PATIENTS WHO ARE OR HAVE BEEN ENROLLED IN A CHEMICAL DEPENDENCY/SUBSTANCEABUSE PROGRAM, SOME INFORMATION MAY BE OMITTED. This clinical summary was aggregated from multiple sources. Caution should be exercised in using it in the provision of clinical care. This summary normalizes information from multiple sources, and as a consequence, information in this document may materially change the coding, format and clinical context of patient data. In addition, data may be omitted in some cases. CLINICAL DECISIONS SHOULD BE BASED ON THE PRIMARY CLINICAL RECORDS. [employer] provides no warranty or guarantee of the accuracy or completeness of information in this document.
--- NOTE | 2024-03-23 08:55 | XR_ITS ---
[address] [address] Patient Name: FER PRATER MRN: [id number] date: 1980 Sex: F Assigned Patient Location: ER Current Patient Location: ER Accession/Order Number: [id number] Exam Date: 03/23/2024 09:15 Report Date: 03/23/2024 09:32 At the request of: MAUDE GUTIERREZ Procedure: XR shoulder RT min 2V EXAM: XR shoulder RT min 2V INDICATION: pain. COMPARISON: None. TECHNIQUE: Right shoulder, 3 views. FINDINGS: No acute fracture or dislocation. Intact acromioclavicular and glenohumeral joints. Unremarkable soft tissues. XR/XR shoulder RT min 2V IMPRESSION: No acute osseous abnormality of the right shoulder. Electronically authenticated by: RICHMOND GANNON Date: 03/23/2024 09:32
--- NOTE | 2024-03-23 08:55 | XR_ITS ---
The [address] [address] Patient Name: FER PRATER MRN: [id number] date: 1980 Sex: F Assigned Patient Location: ER Current Patient Location: ER Accession/Order Number: [id number] Exam Date: 03/23/2024 09:15 Report Date: 03/23/2024 09:30 At the request of: MAUDE GUTIERREZ Procedure: XR chest 1V EXAM: XR chest 1V INDICATION: cough. COMPARISON: None. TECHNIQUE: Single frontal view of the chest FINDINGS: Normal cardiomediastinal contours. No acute infiltrative process. No pleural effusion or pneumothorax. No acute osseous abnormality. XR/XR chest 1V IMPRESSION: No acute cardiopulmonary process. Electronically authenticated by: RICHMOND GANNON Date: 03/23/2024 09:30
[2024-03-23] MEDS: KETOROLAC TROMETHAMINE 30 MG/ML VIAL IM (09:32)
[2024-03-23] MEDS: ORPHENADRINE 60 MG/ 2 ML VIAL IM (09:32)
[2024-03-23 10:45] VITALS: PULSE 90
--- NOTE | 2024-03-23 10:45 | ED.EXTPRO1 ---
HPI - Extremity Problem General Chief complaint: Extremity Problem, Nontraumatic Stated complaint: RT SHOULDER PAIN COUGH Time Seen by Provider: 03/23/24 09:00 Source: patient Mode of arrival: walk-in History of Present Illness HPI Narrative: The patient is coming to us with a right shoulder pain that has been going on at least for a month she have some limitation of the abduction of the right shoulder due to pain, the patient denies any fever chills or any other complaints she also denies any trauma or fall Right now the patient also is complaining of few days history of cough and congestion, some phlegm production with the cough with no shortness of breath no other concern Related Data Previous Rx's ?Medication ?Instructions ?Recorded acetaminophen 650 mg 650 mg PO Q8H PRN pain #20 tabs 03/23/24 tablet,extended release (Tylenol 8 Hour) guaifenesin 600 mg tablet, 600 mg PO Q12H PRN cough #14 tabs 03/23/24 extended release 12 hr (Mucinex) orphenadrine citrate 100 mg 100 mg PO BID PRN muscle spasm #10 03/23/24 tablet,extended release tabs prednisone 20 mg tablet 40 mg (2 x 20 mg) PO DAILY 5 days 03/23/24 #10 tabs Allergies Allergy/AdvReac Type Severity Reaction Status Date / Time No Known Drug Allergies Allergy Verified 03/23/24 08:35 Review of Systems ROS Status of ROS 10 or more systems reviewed and unremarkable except as noted in history and below PFSH PFSH Social History Little interest or pleasure in doing things: not at all Feeling down, depressed, or hopeless: not at all Exam Narrative Exam Narrative: Nurses notes and vital signs reviewed and patient is not hypoxic. Upper extremity and right shoulder: The patient have some limitation with abduction of the right shoulder at 90 degrees she also have tenderness upon palpation of the right scapular area, with an obvious tenderness on palpation with inducing the pain with the flexion against resistance General: Well-appearing and in no apparent distress. Skin: Warm, dry, no pallor noted. No rash. Head: Normocephalic, atraumatic. Neck: Supple, non-tender. Eye: Pupils are equal, round and EOMI. No scleral icterus. Ears, Nose, Mouth, and Throat: TM are clear, no nasal mucosal hypertrophy. Oral mucosa is moist, no posterior oropharynx erythema, uvula is mid-line Cardiovascular: Regular Rate and Rhythm without murmur, gallop or rub. Respiratory: No accessory muscle use or respiratory distress. Lungs are clear to auscultation, no wheezing, rales or rhonchi Chest Wall: no tenderness Back: No midline thoracic or lumbar vertebral tenderness. No CVA tenderness Musculoskeletal: normal ROM, no calf or popliteal tenderness, no lower extremity edema/swelling GI: Abdomen is soft, non-distended. Normal bowel sounds. No masses appreciated. No tenderness to palpation. No rebound, guarding, or rigidity noted. Neurological: A&O x4. No cranial nerve dysfunction observed. No truncal ataxia. Moves all extremities. Sensation intact. Psychiatric: Cooperative and interactive. Normal mood and affect. Constitutional Vital Signs, click to edit/add: Last Vital Signs Temp 98.7 F 03/23/24 08:35 Pulse 118 H 03/23/24 08:35 Resp 20 03/23/24 08:35 BP 134/89 03/23/24 08:35 Pulse Ox 100 03/23/24 08:35 O2 Del Method Room Air 03/23/24 08:35 Course Vital Signs Vital signs: Vital Signs Temperature 98.7 F 03/23/24 08:35 Pulse Rate 118 H 03/23/24 08:35 Respiratory Rate 20 03/23/24 08:35 Blood Pressure 134/89 03/23/24 08:35 Pulse Oximetry 100 03/23/24 08:35 Oxygen Delivery Method Room Air 03/23/24 08:35 Temperature 98.7 F 03/23/24 08:35 Pulse Rate 118 H 03/23/24 08:35 Respiratory Rate 20 03/23/24 08:35 Blood Pressure 134/89 03/23/24 08:35 Pulse Oximetry 100 03/23/24 08:35 Oxygen Delivery Method Room Air 03/23/24 08:35 MDM - Extremity (Nontraumatic) MDM Narrative Medical decision making narrative: The patient presenting with a simple bronchitis at the one of the concern that she have she will be getting Mucinex supportive care at home Chest x-ray showed no acute pathology X-ray of the right shoulder showed no acute pathology as well with the patient presentation, this could be secondary to inflammation, the patient will be treated with prednisone and Tylenol in addition to Norflex Patient referred to orthopedic as outpatient The patient is to follow up with primary care physician in next 2-3 days or to return to the emergency department should any of the signs or symptoms worsen or new symptoms develop. The patient agrees with the following Diagnosis and Treatment plan and the patient will be discharged home. Discharge Plan Discharge Chief Complaint: Extremity Problem, Nontraumatic Clinical Impression: Shoulder sprain, Bronchitis Patient Disposition: Home, Self-Care Time of Disposition Decision: 09:41 Condition: Good Prescriptions / Home Meds: New acetaminophen [Tylenol 8 Hour] 650 mg tablet extended release 650 mg PO Q8H PRN (Reason: pain) Qty: 20 0RF prednisone 20 mg tablet 40 mg PO DAILY 5 Days Qty: 10 0RF guaifenesin [Mucinex] 600 mg tablet extended release 12hr 600 mg PO Q12H PRN (Reason: cough) Qty: 14 0RF orphenadrine citrate 100 mg tablet extended release 100 mg PO BID PRN (Reason: muscle spasm) Qty: 10 0RF Discontinued ibuprofen 800 mg tablet Print Language: Japanese Instructions: Acute Bronchitis (ED), Shoulder Sprain (ED) Referrals: Ronel Molina MD [Primary Care Provider] - 1 week Jack Reaves MD [Physician] - 1 week Discharge Date/Time: 03/23/24 09:54
== END 2024-03-23 09:54 | disposition home or self-care (01) ==
PROVIDERS: Emergency Provider Emergency Medicine; PCP Family Medicine
DX: S43.401A Unspecified sprain of right shoulder joint, initial encounter (principal); J40 Bronchitis, not specified as acute or chronic; X58.XXXA Exposure to other specified factors, initial encounter
CPT/HCPCS: 71045; 73030; 96372; 99284; J1885; J2360

== ENCOUNTER 2025-02-26 15:11 | Outpatient (OUT) | payer OTHER, SELFPAY ==
--- NOTE | 2025-02-26 15:14 | CT_ITS ---
The [address] [address] Patient Name: FER PRATER MRN: [id number] date: 1980 Sex: F Assigned Patient Location: CT Current Patient Location: CT Accession/Order Number: [id number] Exam Date: 02/26/2025 15:36 Report Date: 02/26/2025 20:34 At the request of: WILLOW VIDES MD Procedure: CT soft tissue neck w con CT soft tissue neck w con 02/26/2025 3:59 PM SIGNS AND SYMPTOMS: Lymphadenopathy of right cervical region, recent infection in right with swelling and pain extending to the right side of the neck CONTRAST: 100 mL of intravenous Omnipaque 300 TECHNIQUE: Multidetector CT axial slices of the soft tissues of the neck were obtained with IV contrast. Sagittal and coronal reformats were reconstructed. CT was performed with one or more of the following dose reduction techniques: Automated exposure control, adjustment of the mA and/or kV according to patient size, or use of iterative reconstruction technique. COMPARISON: None FINDINGS: Soft tissues of the orbits are within normal limits. The soft tissues of the infratemporal fossa fossa structures show no acute abnormality. Mucosal surfaces of the nasopharynx, oropharynx, hypopharynx, glottic, and subglottic airways are grossly unremarkable. There are prominent lymph nodes within the right level 1 and right level 2 measuring up to 1.4 cm in short axis. Less prominent lymph nodes are noted along the left side of the neck none of which are pathologically enlarged. The left parotid gland and bilateral submandibular glands are within normal limits. There is a prominent lymph node at the superior aspect of the right parotid gland measuring 1 cm in short axis. There is a 4 mm hypoattenuating nodule in the right thyroid lobe. The carotid and jugular circulations are within normal limits. The visualized lung parenchyma shows no acute pathology. No acute bony abnormalities are appreciated. The skull base, craniocervical junction, atlantoaxial joints are within normal limits. Mucosal thickening is noted in the maxillary sinuses, right greater than left. CT/CT soft tissue neck w con IMPRESSION: Prominent lymph nodes are noted in the right parotid gland as well as the right level 1 and level 2. These measure up to 1.4 cm in short axis and are suspicious for an underlying lymphoproliferative process or malignancy. Mucosal thickening is noted in the maxillary sinuses. Impression dictated by: Vaibhav Alberto M.D. 02/26/2025 8:34 PM Dictation Location: [place] [address] Electronically authenticated by: [id number] Y Date: 02/26/2025 20:34
--- NOTE | 2025-02-26 15:14 | CT_ITS ---
[address] [address] Patient Name: FER PRATER MRN: [id number] date: 1980 Sex: F Assigned Patient Location: CT Current Patient Location: CT Accession/Order Number: [id number] Exam Date: 02/26/2025 15:36 Report Date: 02/26/2025 20:25 At the request of: WILLOW VIDES MD Procedure: CT sinus wo con CT sinus wo con 02/26/2025 4:00 PM SIGN AND SYMPTOMS: ^Lymphadenopathy of right cervical region, recent infection in right with swelling and pain extending to the right side of the neck TECHNIQUE: Multidetector CT axial slices of the sinuses were obtained without IV contrast. Coronal reformats were generated and reviewed to further define anatomy and possible pathology. CT was performed with one or more of the following dose reduction techniques: Automated exposure control, adjustment of the mA and/or kV according to patient size, or use of iterative reconstruction technique. COMPARISON: None. Turbinates: Within normal limits. Septum: Within normal limits. Sinuses and drainage pathways: Right: Frontal sinus and frontal recess: Well aerated. Maxillary sinus: There is polypoid mucosal thickening at the base of the right maxillary sinus. Ethmoid sinuses: Well aerated. Ostiomeatal complex: Patent. Spehnoid sinus: Well aerated. Sphenoethmoidal recess: Well aerated. Left: Frontal sinus and frontal recess: Well aerated. Maxillary sinus: Mild mucosal thickening is noted in the base of the left maxillary sinus. Ethmoid sinuses: Well aerated. Ostiomeatal complex: Patent. Sphenoid sinus: Well aerated. Sphenoethmoidal recess: Well aerated. Anatomic variations: Significant variations. Orbits: Within normal limits. Anterior cranial fossa: No acute findings. CT/CT sinus wo con IMPRESSION: Mucosal thickening is noted in the maxillary sinuses right greater than left. The orbits and periorbital soft tissues are within normal limits. Impression dictated by: Vaibhav Alberto M.D. 02/26/2025 8:25 PM Dictation Location: [place] [address] Electronically authenticated by: [id number] Y Date: 02/26/2025 20:25
--- OUTSIDE RECORDS SUMMARY | 2025-02-26 15:15 | XMS_ITS | CCD ---
Author Organization [facility] Care Team Providers Care Inspector Automatic Typewriter Name Role Phone MAHOGANY, DR RONEL Nugent Attending Unavailable Odell, DR Santiago Consulting Unavailable MAHOGANY, DR RONEL Nugent Primary Care Unavailable MAHOGANY, DR RONEL Nugent Admitting Unavailable VIDES, DR RONEL Nugent Consulting Unavailable MAHOGANY, DR RONEL Nugent Admitting Unavailable VIDES, DR RONEL Nugent Attending Unavailable Odell, DR Santiago Consulting Unavailable MAHOGANY, DR RONEL Nugent Primary Care Unavailable MAHOGANY, DR RONEL Nugent Consulting Unavailable MAHOGANY, DR RONEL Nugent Referring Unavailable MAHOGANY, DR RONEL Nugent Attending Unavailable Odell, DR Santiago Consulting Unavailable MAHOGANY, DR RONEL Nugent Primary Care Unavailable VIDES, DR RONEL Nugent Admitting Unavailable VIDES, DR RONEL Nugent Consulting Unavailable Unavailable Primary Care Provider UnavailAilin Valverde MD Unavailable LORA YEAGER Attending Unavailable AILIN RODRIGUEZ Attending Unavailable LORA YEAGER Attending Unavailable Ronel Vides MD Primary Care Provider [phone] Елена Johnston APRN Attending Provider Ronel Vides MD Attending Provider NNAMDI DURAN Referring Unavailable RONEL VIDES Primary Care Unavailable Medications Current Medications Medication Drug Class(es) Dates Sig (Normalized) Sig (Original) amoxicillin 875 mg / clavulanate 125 mg oral tablet (2 sources) Penicillin-class Antibacterial Start: 02-03-2025 take 1 tablet by mouth every twelve hours Amoxicillin-Pot Clavulanate 875-125 mg tablet Active 1 TAB PO Every 12 hours February 03, 2025 12:00am Complies with drug therapy dexamethasone 1 mg/ml / neomycin 3.5 mg/ml / polymyxin b 15905 unt/ml ophthalmic suspension (2 sources) Aminoglycoside Antibacterial, Polymyxin-class Antibacterial, Corticosteroid Start: 02-03-2025 Neomycin-Polymyxi n B-Dexameth 3.5mg/mL-10,000 unit/mL-0.1 % drops,suspension Active DROPS OPHTHALMIC February 03, 2025 12:00am Complies with drug therapy ibuprofen 800 mg oral tablet (9 sources) Nonsteroidal Anti-inflammatory Drug Start: 04-03-2024 End: 05-19-2024 take 1 tablet by mouth every eight hours as needed for headache Ibuprofen 800 mg tablet Active 0 .ROUTE .COMPLEX 90 May 19, 2024 11:20am TAKE 1 TABLET BY MOUTH EVERY 8 HOURS NEEDED FOR HEADACHE Complies with drug therapy Start: 02-28-2024 End: 04-03-2024 take 1 tablet by mouth every eight hours as needed for headache Ibuprofen 800 mg tablet Discontinued 800 MG PO Every 8 hours as needed for headache 90 90 February 28, 2024 9:35am April 03, 2024 9:16am Cmcjefakdlrp-Nt-Rsbc-Mineral s (Women's Daily Formula) 27-0.4 mg tablet (3 sources) Start: 02-28-2024 take 1 tablet by mouth once daily Mmraxkjtdngf-Er-Nrdg-Minerals (Women's Daily Formula) 27-0.4 mg tablet Active TAB PO February 28, 2024 12:00am Complies with drug therapy Start: 02-28-2024 take 1 tablet by esdras th once daily Asdydubxpmei-Va-Toyx-Minerals (Women's D aily Formula) 27-0.4 mg tablet Active TAB PO February 28, 2024 12:00am mupirocin 0.02 mg/mg topical ointment (2 sources) RNA Synthetase Inhibitor Antibacterial Start: 12-29-2024 End: 01-08-2025 mupirocin (Bactroban) 2 % ointment Indications: 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) Apply to affected area on buttock once daily with dressing change 22 g 12/29/2024 01/08/2025 Active Problems Problem Classification Problem Date Documented Date Episodic/Chronic Cancer of bone and connective tissue (6 sources) Malignant melanoma of trunk; 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] 12-29-2024 Chronic Genitourinary symptoms and ill-defined conditions (2 sources) Genuine stress incontinence; Translations: [Stress incontinence (female) (male)] 02-03-2025 Chronic Immunizations and screening for infectious disease (1 source) Encounter for screening for human papillomavirus (HPV); Translations: [Encounter for screening for human papillomavirus (HPV)] Onset: 02-11-2025 Episodic Lymphadenitis (2 sources) Cervical lymphadenopathy; Translations: [Localized enlarged lymph nodes] 02-06-2025 Episodic Melanomas of skin (4 sources) H/O Malignant melanoma; Translations: [Personal history of malignant melanoma of skin] 02-03-2025 Episodic Neoplasms of unspecified nature or uncertain behavior (2 sources) Neoplastic disease; Translations: [Neoplasm of unspecified behavior of bone, soft tissue, and skin] 12-05-2024 Episodic Nonmalignant breast conditions (8 sources) Disorder of breast, unspecified; Translations: [Other specified disorders of breast] Onset: 09-12-2021 Episodic Other aftercare (2 sources) Removal of sutures done; Translations: [Encounter for removal of sutures] 01-13-2025 Episodic Other and unspecified benign neoplasm (2 sources) Melanocytic nevus of trunk; Translations: [Melanocytic nevi of trunk] 12-05-2024 Episodic Other screening for suspected conditions (not mental disorders or infectious disease) (8 sources) Other abnormal and inconclusive findings on diagnostic imaging of breast; Translations: [Patient encounter status] Onset: 04-25-2022 Episodic Other skin disorders (2 sources) Lentiginosis; Translations: [Other melanin hyperpigmentation] 12-05-2024 Episodic Other skin disorders (2 sources) Seborrheic keratosis; Translations: [Other seborrheic keratosis] 12-05-2024 Episodic Other skin disorders (2 sources) Neck swelling; Translations: [Localized swelling, mass and lump, neck] 02-03-2025 Episodic Results Test Name Value Interpretation Reference Range Facility HPV DNA High Riskon 02-14-20 HPV Interp Normal [facility] Comment on above: Result Comment: This test amplifies and detects DNA of 14 high-risk HPV types associated with cervical cancer and its precursor lesions (HPV types 16,18, 31, 33, 35, 39, 45, 51, 52, 56, 58, 59, 66, and 68). Sensitivity may be affected by specimen collection methods, stage of infection, and the presence of interfering substances. Results should be interpreted in conjunction with other available laboratory and clinical data. A negative high-risk HPV result does not exclude the possibility of future cytologic HSIL or underlying CIN2-3 or cancer. This test is intended for medical purposes only and is not valid for the evaluation of suspected sexual abuse or for other forensic purposes. Performed By: #### H PVH #### [address] [address] Steam Boiler Fireman: Aakash Mcneill MD HPV Type 16 Not detected Normal [facility] Comment on above: Performed By: #### H PVH #### [address] [address] [employer] Boiler Fireman: Aakash Mcneill MD HPV Type 18 Not detected [facility] Comment on above: Performed By: #### H PVH #### [address] [address] Steam Boiler Fireman: Aakash Mcneill MD Other High Risk HPV Not detected [facility] Comment on above: Performed By: #### H PVH #### [address] [address] Steam Boiler Fireman: Aakash Mcneill MD HPV DNA High Riskon 02-13-20 25 HPV Sample .THIN PREP [facility] Comment on above: Performed By: #### H PVH #### [address] [address] Steam Boiler Fireman: Aakash Mcneill MD Source CERVICAL MATERIAL Normal [facility] Comment on above: Performed By: #### H PVH #### [address] [address] Steam Boiler Fireman: Aakash Mcneill MD Cytology Reporton 02-11-2025 Cytology report Cyto stain.thin prep Doc (Cvx/Vag) (NOTE) Path Number: [id number] DIAGNOSIS Imaged ThinPrep Pap - Cervical (1 monolayer slide): Specimen Adequacy: Satisfactory for evaluation. - Endocervical/transform ation zone component present. Descriptive Diagnosis: Negative for intraepithelial lesion or malignancy. Cytotech Screener: VS Rescreened By: EY Electronically Signed Out Martha MAYORGA(ASCP) ey/02/16/2025 Procedure/Addendum HPV Procedure Report Date Ordered: 02/12/2025 Status: Signed Out Date Complete: 02/13/2025 By: System Interface Date Reported: 02/13/2025 Sample: HPV Type 16 Result: Not Detected Ref Range: Not Detected Sample: HPV Type 18 Result: Not Detected Ref Range: Not Detected Sample: Other High Risk HPV Result: Not Detected Ref Range: Not Detected Sample: HPV Interp Result: Ref Range: This test amplifies and detects DNA of 14 high-risk HPV types associated with cervical cancer and its precursor lesions (HPV types 16,18, 31, 33, 35, 39, 45, 51, 52, 56, 58, 59, 66, and 68). Sensitivity may be affected by specimen collection methods, stage of infection, and the presence of interfering substances. Results should be interpreted in conjunction with other available laboratory and clinical data. A negative high-risk HPV result does not exclude the possibility of future cytologic HSIL or underlying CIN2-3 or cancer. This test is intended for medical purposes only and is not valid for the evaluation of suspected sexual abuse or for other forensic purposes. Performed at [address] [address] ([phone] Source of Specimen: A: Imaged ThinPrep Pap - Cervical (1 monolayer slide) HPV Reflex?............... 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 The Pap smear is a screening test primarily for squamous epithelial lesions, which is subject to both false negative and false positive results. Your patient should be reminded to consult you immediately if she experiences any suspicious signs or symptoms, regardless of her Pap smear result. GYNECOLOGIC CYTOLOGY REPORT Patient Name: FER ALEMAN [facility] Rec: [id number] [facility] ANATOMIC PATHOLOGY [address] [place] [address]. [place], [place] [address] Normal [facility] No Panel Informationon 12-29 Lesion length (cm): 1.3 Lesion width (cm): 0.6 Margin per side (cm): 1 Total excision diameter (cm): 3.3 Informed consent: discussed and consent obtained Informed consent comment: Risks and possible complications were discussed as noted on the consent form. The consent form was signed prior to the procedure. Timeout: patient name, date of , surgical site, and procedure verified Timeout comment: Patient and provider identified site. Site was marked and excision was drawn out. Photo was taken and shown to patient, patient verified this is the correct site. Procedure prep: Patient was prepped and draped in usual sterile fashion (The planned incision lines were drawn along relaxed skin tension lines, if possible, to minimize scarring and deformity of surrounding structures.) Prep type: Chlorhexidine Anesthesia: the lesion was anesthetized in a standard fashion Anesthesia comment: The local anesthetic was injected to create a field block at the site of the procedure. Anesthetic: 1% lidocaine w/ epinephrine 1-100,000 buffered w/ 8.4% NaHCO3 Instrument used: #15 blade Instrument used comment: Incisions were made as drawn, and the surrounding tissue was undermined until the skin edges could be approximated without undue tension. Any tissue redundancies were removed. Hemostasis achieved with: electrodesiccation Additional details: Amount of lidocaine used: 13.0 ml Estimated blood loss: 2.0 ml [facility] Complexity: Intermediate Final length (cm): 8.5 Reason for type of repair: allow closure of the large defect Undermining: edges undermined Undermining comment: The surrounding tissue was undermined until the skin edges could be approximated without undue tension. Any tissue redundancies were removed. Subcutaneous layers (deep stitches): Suture size: 5-0 Suture type comment: Biosyn Stitches: Buried horizontal mattress (Closure was performed in a layered fashion with subcutaneous tissue closed first using tension-bearing absorbable sutures to the level of the superficial fascia.) Fine/surface layer approximation (top stitches): Suture size: 4-0 Suture type: Prolene (polypropylene) Stitches: simple running Stitches comment: Epicuticular skin sutures were then placed with minimal tension. Outcome: patient tolerated procedure well with no complications Post-procedure details: sterile dressing applied and wound care instructions given Post-procedure details comment: It was emphasized to the patient to contact the office for any signs of infection, uncontrollable bleeding, or complications. Dressing type: bandage [facility] No Panel InformationOrdered By: Dora Neville on 12-29-2024 [facility] [place] Work Phone: No Panel Informationon 12-05 Type of biopsy: tangential Informed consent: discussed and consent obtained Informed consent comment: The risks and benefits of the biopsy were discussed. Risks include but are not limited to bleeding, infection, scarring, pain, and nerve damage. An opportunity to ask questions prior to the procedure was permitted and all questions were answered. Patient was prepped and draped in usual sterile fashion: area cleansed with alcohol. Anesthesia: the lesion was anesthetized in a standard fashion Anesthetic: 1% lidocaine w/ epinephrine 1-100,000 buffered w/ 8.4% NaHCO3 Instrument used: DermaBlade Hemostasis achieved with: electrodesiccation Outcome: patient tolerated procedure well Outcome comment: The specimen was placed in a prelabeled formalin container to be sent for pathology Post-procedure details: sterile dressing applied and wound care instructions given Post-procedure details comment: Emphasized need to contact clinic for any signs of infection, uncontrollable bleeding, or complications. Dressing type: bandage Additional details: Photo taken yes Amount of lidocaine used: 1.[address] [facility] [place] Type of biopsy: tangential Informed consent: discussed and consent obtained Informed consent comment: The risks and benefits of the biopsy were discussed. Risks include but are not limited to bleeding, infection, scarring, pain, and nerve damage. An opportunity to ask questions prior to the procedure was permitted and all questions were answered. Patient was prepped and draped in usual sterile fashion: area cleansed with alcohol. Anesthesia: the lesion was anesthetized in a standard fashion Anesthetic: 1% lidocaine w/ epinephrine 1-100,000 buffered w/ 8.4% NaHCO3 Instrument used: DermaBlade Hemostasis achieved with: electrodesiccation Outcome: patient tolerated procedure well Outcome comment: The specimen was placed in a prelabeled formalin container to be sent for pathology Post-procedure details: sterile dressing applied and wound care instructions given Post-procedure details comment: Emphasized need to contact clinic for any signs of infection, uncontrollable bleeding, or complications. Dressing type: bandage Additional details: Photo taken yes Amount of lidocaine used: 1.0 cc [facility] [place] [facility] [place] MG MAMM DX 3D RT CADon 04-25 MG MAMM DX 3D RT CAD Patient: ALEJANDRO ALEMAN Exam Date: 04/25/2022 : 1980 Gender:F Ordering : DR RONEL VIDES M.D. Admission #: [id number] Family : Order #: [id number] CLICK HERE TO VIEW EXAM RADIOLOGY REPORT [...] pancreatic cancer at age 67. LOCATION: [facility] BREAST COMPOSITION: Extremely dense, which [...] M.D. on 04/25/2022 at 14:56 Normal [facility] US BREAST RIGHT LIMITEDon US BREAST RIGHT LIMITED Patient: FER ALEMAN Exam Date: 04/25/2022 : 1980 Gender:F Ordering : DR RONEL VIDES M.D. Admission #: [id number] Family : Order #: [id number] CLICK HERE TO VIEW EXAM RADIOLOGY REPORT [...] pancreatic cancer at age 67. LOCATION: [facility] BREAST COMPOSITION: Extremely dense, which [...] M.D. on 04/25/2022 at 14:53 Approved by: aJck Bain M.D. on 04/25/2022 at 14:56 Normal [facility] MAMMO POST BIOPSY RIGHTon MAMMO POST BIOPSY RIGHT Patient: FER ALEMAN Exam Date: 09/14/2021 : 1980 Gender:F Ordering : DR RONEL VIDES M.D. Admission #: [id number] Family : Order #: [id number] CLICK HERE TO VIEW EXAM This report [...] Bain M.D. on 09/20/2021 at 12:07 Normal [facility] US VAC ASST BX BRST RT W CLI Riley 09-14-2021 US VAC ASST BX BRST RT W CLIP Patient: FER ALEMAN Exam Date: 09/14/2021 : 1980 Gender:F Ordering : DR RONEL VIDES M.D. Admission #: [id number] Family : Order #: [id number] CLICK HERE TO VIEW EXAM This report [...] M.D. on 09/20/2021 at 12:06 Normal [facility] CBC AUTO DIFFon 09-08-2021 BASO # 0.1 103/ul Normal 0.0-0.1 [facility] Comment on above: Performed By: #### T SH, CMP, LIPID #### [facility] [address] [place] [address] Dr. Valery Walker Basophils/100 WBC (Bld) 0.6 % Normal 0.2-2.0 [facility] Comment on above: Performed By: #### T SH, CMP, LIPID #### [facility] [address] [place] [address] Dr. Valery Walker EO # 0.2 103/ul Normal 0.0-0.7 [facility] Comment on above: Performed By: #### T SH, CMP, LIPID #### [facility] [address] [place] [address] Dr. Valery Walker Eosinophils/100 WBC (Bld) 2.8 % Normal 0.9-7.0 [facility] Comment on above: Performed By: #### T SH, CMP, LIPID #### [facility] [address] [address] [address] Valery Walker Erythrocyte distribution width (RBC) [Ratio] 13.6 % Normal 11.0-15.0 [facility] Comment on above: Performed By: #### T SH, CMP, LIPID #### [facility] [address] [place] [address] Dr. Valery Walker Hematocrit (Bld) [Volume fraction] 43.1 % Normal 36.0-48.0 [facility] Comment on above: Performed By: #### T SH, CMP, LIPID #### [facility] [address] [place] [address] Dr. Valery Walker Hemoglobin (Bld) [Mass/Vol] 14.1 g/dL Normal 12.0-16.0 [facility] Comment on above: Performed By: #### T SH, CMP, LIPID #### [facility] [address] [place] [address] Dr. Valery Walker IG # 0.02 10e3/ul Normal 0.00-0.03 [facility] Comment on above: Performed By: #### T SH, CMP, LIPID #### [facility] [address] [place] [address] Dr. Valery Walker IG % 0.3 % Normal 0.0-0.5 [facility] Comment on above: Performed By: #### T SH, CMP, LIPID #### [facility] [address] [place] [address] Dr. Valery Walker LYMPH # 3.4 103/ul Normal 1.2-3.8 [facility] Comment on above: Performed By: #### T SH, CMP, LIPID #### [facility] [address] [place] [address] Dr. Valery Walker Lymphocytes/100 WBC (Bld) 43.2 % Normal 20.5-60.0 [facility] Comment on above: Performed By: #### T SH, CMP, LIPID #### [facility] [address] [place] [address] Dr. Valery Walker MANUAL DIFF REQ NO Normal [facility] Comment on above: Performed By: #### T SH, CMP, LIPID #### [facility] [address] [place] [address] Dr. Valery Walker MCH (RBC) [Entitic mass] 28.0 pg Normal 26.7-34.0 [facility] Comment on above: Performed By: #### T SH, CMP, LIPID #### [facility] [address] [place] [address] Dr. Valery Walker MCHC (RBC) [Mass/Vol] 32.7 g/dL Normal 29.9-35.2 [facility] Comment on above: Performed By: #### T SH, CMP, LIPID #### [facility] [address] [place] [address] Dr. Valery Walker MCV (RBC) [Entitic vol] 85.5 fL Normal 81.0-99.0 [facility] Comment on above: Performed By: #### T SH, CMP, LIPID #### [facility] [address] [place] [address] Dr. Valery Walker MONO # 0.4 103/ul Normal 0.3-0.8 [facility] Comment on above: Performed By: #### T SH, CMP, LIPID #### [facility] [address] [place] [address] Dr. Valery Walker Monocytes/100 WBC (Bld) 4.7 % Normal 1.7-12.0 [facility] Comment on above: Performed By: #### T SH, CMP, LIPID #### [facility] [address] [place] [address] Dr. Valery Walker NEUT # 3.8 103/ul Normal 1.4-6.5 [facility] Comment on above: Performed By: #### T SH, CMP, LIPID #### [facility] [address] [place] [address] Dr. Valery Walker Neutrophils/100 WBC (Bld) 48.4 % Normal 43.0-75.0 [facility] Comment on above: Performed By: #### T SH, CMP, LIPID #### [facility] [address] [place] [address] Dr. Valeyr Walker Platelet mean volume (Bld) [Entitic vol] 10.3 fL Normal 9.5-13.5 [facility] Comment on above: Performed By: #### T SARITA CMP, LIPID #### [facility] [address] [place] [address] Dr. Valery Walker PLT 286 103/ul Normal 150-450 [facility] Comment on above: Performed By: #### T SARTIA CMP, LIPID #### [facility] [address] [address] [address] Valery Walker RBC 5.04 106/ul Normal 4.20-5.40 [facility] Comment on above: Performed By: #### T SARITA CMP, LIPID #### [facility] [address] [place] [address] Dr. Valery Walker WBC 7.9 103/ul Normal 4.0-11.0 [facility] Comment on above: Performed By: #### T SARITA CMP, LIPID #### [facility] [address] [address] [address] Valery Walker GLYCOHEMOGLOBIN A1Con 2021 ADA RECOMMENDATION SEE BELOW Normal [facility] Comment on above: Result Comment: ADA RECOMMENDED LIMIT 4.0 - 6.0 ADA THERAPEUTIC TARGET < 7.0 ACTION SUGGESTED > 7.0 Performed By: #### A 1C #### [facility] [address] [place] [address] Dr. Valery Walker Glucose [Mass/Vol] 108 mg/dL Normal [facility] Comment on above: Performed By: #### A 1C #### [facility] [address] [place] [address] Dr. Valery Walker HbA1c (Bld) [Mass fraction] 5.4 % Normal 4.5-6.2 [facility] Comment on above: Performed By: #### A 1C #### [facility] [address] [place] [address] Dr. Valery Walker LIPID PROFILEon 09-08-2021 CHOL-HDL RATIO NORM SEE BELOW Normal [facility] Comment on above: Result Comment: 3.3 - 4.4 LOW RISK 4.4 - 7.1 AVERAGE RISK 7.1 - 11.0 MODERATE RISK >11.0 HIGH RISK Performed By: #### T SH, CMP, LIPID #### [facility] [address] [address] [address] Valery Walker Cholesterol [Mass/Vol] 191 mg/dL Normal <=200 Th [facility] Comment on above: Performed By: #### T SH, CMP, LIPID #### [facility] [address] [address] [address] Valery Walker Cholesterol in HDL [Mass/Vol] 56 mg/dL Normal 40-60 [facility] Comment on above: Performed By: #### T SH, CMP, LIPID #### [facility] [address] [place] [address] Dr. Valery Walker Cholesterol in LDL [Mass/Vol] 115.6 mg/dL Normal [facility] Comment on above: Performed By: #### T SARITA, CMP, LIPID #### [facility] [address] [place] [address] Dr. Valery Walker Cholesterol.total/Chol esterol in HDL [Mass ratio] 3.4 {ratio} Normal [facility] Comment on above: Performed By: #### T SH, CMP, LIPID #### [facility] [address] [address] [address] Valery Walker HDL NORMAL > or = 60 mg/dl - LO W CARDIOVASCULAR RISK <40 mg/dl - HIGH CARDIOVASCULAR RISK Normal [facility] Comment on above: Performed By: #### T SH, CMP, LIPID #### [facility] [address] [place] [address] Dr. Valery Walker LDL CALC NORMAL SEE BELOW Normal [facility] Comment on above: Result Comment: <100 mg/dl OPTIMAL 100 - 129 mg/dl NEAR OR ABOVE OPTIMAL 130 - 159 mg/dl BORDERLINE HIGH 160 - 189 mg/dl HIGH >190 mg/dl VERY HIGH Performed By: #### T SH, CMP, LIPID #### [facility] [address] [address] [address] Valery Walker Triglyceride [Mass/Vol] 97 mg/dL Normal <=150 [facility] Comment on above: Performed By: #### T SH, CMP, LIPID #### [facility] [address] [place], [place] [address] Dr. Valery Walker VLDL CALC 19.4 mg/dL Normal [facility] Comment on above: Performed By: #### T SH, CMP, LIPID #### [facility] [address] [place], [place] [address] Dr. Valery Walker MG MAMM DIAGNOSTIC 3D TATE CA Don 09-08-2021 MG MAMM DIAGNOSTIC 3D TATE CAD Patient: FER ALEMAN Exam Date: 09/08/2021 : 1980 Gender:F Ordering : DR RONEL VIDES M.D. Admission #: [id number] Family : Order #: [id number] CLICK HERE TO VIEW EXAM RADIOLOGY REPORT [...] pancreatic cancer at age 67. LOCATION: [facility] BREAST COMPOSITION: Extremely dense, which [...] Bain M.D. on 09/08/2021 at 13:59 Normal [facility] PROF 14(COMP METB)on 022 Albumin [Mass/Vol] 3.8 g/dL Normal 3.4-5.0 [facility] Comment on above: Performed By: #### T SH, CMP, LIPID #### [facility] [address] [address] [address] Valery Walker Albumin/Globulin [Mass ratio] 0.9 {ratio} Normal [facility] Comment on above: Performed By: #### T SH, CMP, LIPID #### [facility] [address] [address] [address] Valery Walker ALP [Catalytic activity/Vol] 71 U/L Normal 46-116 [facility] Comment on above: Performed By: #### T SH, CMP, LIPID #### [facility] [address] [address] [address] Valery Walker ALT [Catalytic activity/Vol] 15 U/L Normal 14-59 [facility] Comment on above: Performed By: #### T SH, CMP, LIPID #### [facility] [address] [address] [address] Valery Walker Anion gap [Moles/Vol] 13.3 mmol/L Normal [facility] Comment on above: Performed By: #### T SH, CMP, LIPID #### [facility] [address] [address] [address] Valery Walker AST [Catalytic activity/Vol] 12 U/L Critically low 15-37 [facility] Comment on above: Performed By: #### T SH, CMP, LIPID #### [facility] [address] [address] [address] Valery Walker Bilirubin [Mass/Vol] 0.5 mg/dL Normal 0.2-1.0 [facility] Comment on above: Performed By: #### T SH, CMP, LIPID #### [facility] [address] [address] [address] Valery Walker Calcium [Mass/Vol] 8.6 mg/dL Normal 8.5-10.1 [facility] Comment on above: Performed By: #### T SH, CMP, LIPID #### [facility] [address] [address] [address] Valery Walker Chloride [Moles/Vol] 104 mmol/L Normal 98-107 [facility] Comment on above: Performed By: #### T SH, CMP, LIPID #### [facility] [address] [address] [address] Valery Walker CO2 [Moles/Vol] 25.4 mmol/L Normal 21.0-32.0 [facility] Comment on above: Performed By: #### T SH, CMP, LIPID #### [facility] [address] [place] [address] Dr. Valery Walker Creatinine [Mass/Vol] 0.67 mg/dL Normal 0.55-1.02 [facility] Comment on above: Performed By: #### T SH, CMP, LIPID #### [facility] [address] [address] [address] Valery Walker EGFR-AF LUXEMBOURGER >60 Normal >=60 [facility] Comment on above: Performed By: #### T SH, CMP, LIPID #### [facility] [address] [address] [address] Valery Walker EGFR-NON AF LUXEMBOURGER >60 Normal >=60 [facility] Comment on above: Performed By: #### T SH, CMP, LIPID #### [facility] [address] [address] [address] Valery Walker Globulin (S) [Mass/Vol] 4.0 g/dL Normal [facility] Comment on above: Performed By: #### T SH, CMP, LIPID #### [facility] [address] [address] [address] Valery Walker Glucose [Mass/Vol] 99 mg/dL Normal 74-106 [facility] Comment on above: Performed By: #### T SH, CMP, LIPID #### [facility] [address] [place] [address] Dr. Valery Walker Potassium [Moles/Vol] 4.7 mmol/L Normal 3.5-5.1 [facility] Comment on above: Performed By: #### T SH, CMP, LIPID #### [facility] [address] [place] [address] Dr. Valery Walker Protein [Mass/Vol] 7.8 g/dL Normal 6.1-8.2 [facility] Comment on above: Performed By: #### T SH, CMP, LIPID #### [facility] [address] [place] [address] Dr. Valery Walker Sodium [Moles/Vol] 138 mmol/L Normal 136-145 [facility] Comment on above: Performed By: #### T SH, CMP, LIPID #### [facility] [address] [place] [address] Dr. Valery Walker Urea nitrogen [Mass/Vol] 14.0 mg/dL Normal 7.0-18.0 [facility] Comment on above: Performed By: #### T SH, CMP, LIPID #### [facility] [address] [place] [address] Dr. Valery Walker Urea nitrogen/Creatinine [Mass ratio] 20.9 mg/mg Normal [facility] Comment on above: Performed By: #### T SH, CMP, LIPID #### [facility] [address] [place] [address] Dr. Valery Walker TSHon 09-08-2021 TSH 1.292 uIU/mL Normal 0.470-4.680 [facility] Comment on above: Performed By: #### T SH, CMP, LIPID #### [facility] [address] [place] [address] Dr. Valery Walker TSH RANGE SEE BELOW Normal [facility] Comment on above: Result Comment: <0.3 4 UIU/ml HYPERTHYROID 0.34-5.60 UIU/ml EUTHYROID >5.60 UIU/ml HYPOTHYROID Performed By: #### T SH, CMP, LIPID #### [facility] [address] [address] [address] Valery Walker US BREAST RIGHT LIMITEDon US BREAST RIGHT LIMITED Patient: FER ALEMAN Exam Date: 09/08/2021 : 1980 Gender:F Ordering : DR RONEL VIDES M.D. Admission #: [id number] Family : Order #: [id number] CLICK HERE TO VIEW EXAM RADIOLOGY REPORT [...] pancreatic cancer at age 67. LOCATION: [facility] BREAST COMPOSITION: Extremely dense, which [...] Bain M.D. on 09/08/2021 at 13:59 Normal [facility] Vital Signs Date Time Vital Sign Value Performing Clinician Faci lity 02-06-2025 13:29-0400 Body height 171.45 cm Ronel Vides MD Work Phone: [facility] 02-06-2025 13:29-0400 Body mass index (BMI) [Ratio] 31 kg/m2 Ronel Vides MD Work Phone: [facility] 02-06-2025 13:29-0400 Body weight 91.22 kg Ronel Vides MD Work Phone: [facility] 02-06-2025 13:29-0400 Diastolic blood pressure 78 mm[Hg] Ronel Vides MD Work Phone: [facility] 02-06-2025 13:29-0400 Heart rate 84 /min Ronel Vides MD Work Phone: [facility] 02-06-2025 13:29-0400 Systolic blood pressure 114 mm[Hg] Ronel Vides MD Work Phone: [facility] 02-03-2025 17:43-0400 Body height 171.45 cm Ronel Vides MD Work Phone: [facility] 02-03-2025 17:43-0400 Body mass index (BMI) [Ratio] 31.1 kg/m2 Ronel Vides MD Work Phone: [facility] 02-03-2025 17:43-0400 Body temperature 98.1 [degF] Ronel Vides MD Work Phone: [facility] 02-03-2025 17:43-0400 Body weight 91.62 kg Ronel Vides MD Work Phone: [facility] 02-03-2025 17:43-0400 Diastolic blood pressure 86 mm[Hg] Ronel Vides MD Work Phone: [facility] 02-03-2025 17:43-0400 Heart rate 97 /min Ronel Vides MD Work Phone: [facility] 02-03-2025 17:43-0400 Respiratory rate 14 /min Ronel Vides MD Work Phone: [facility] 02-03-2025 17:43-0400 SaO2% (BldA) [Mass fraction] 98 % Ronel Vides MD Work Phone: [facility] 02-03-2025 17:43-0400 Systolic blood pressure 135 mm[Hg] Ronel Vides MD Work Phone: [facility] 02-28-2024 09:07-0400 Body height 172.72 cm [facility] 02-28-2024 09:07-0400 Body mass index (BMI) [Ratio] 29.7 kg/m2 [facility] 02-28-2024 09:07-0400 Body weight 88.9 kg [facility] 02-28-2024 09:07-0400 Diastolic blood pressure 85 mm[Hg] [facility] 02-28-2024 09:07-0400 Heart rate 97 /min [facility] 02-28-2024 09:07-0400 Systolic blood pressure 134 mm[Hg] [facility] Encounters Encounter Date Encounter Type Care Provider Facility Start: 02-11-2025 End: 02-11-2025 ambulatory [facility] Start: 02-11-2025 Encounter for gynecological examination (general) (routine) without abnormal findings [facility] Start: 02-06-2025 End: 02-06-2025 ambulatory Ronel Vides MD Work Phone: [facility] Work Phone: Start: 02-06-2025 End: 02-06-2025 Patient encounter procedure Ronel Vides MD -[facility] Work Phone: Start: 02-03-2025 End: 02-03-2025 ambulatory Ronel Vides MD Work Phone: [facility] Work Phone: Start: 02-03-2025 End: 02-03-2025 Patient encounter procedure Елена Johnston CASH ANALYST -[facility] Work Phone: Start: 01-13-2025 End: 01-13-2025 Bamboo flowsheet Lora Yeager PA Work Phone: [facility] Start: 01-13-2025 End: 01-13-2025 Bamboo flowsheet [facility] Start: 01-13-2025 End: 01-13-2025 ambulatory LORA YEAGER Not Available Start: 01-13-2025 End: 01-13-2025 Postop follow up visit related to original px Lora STARK Work Phone: [facility] Comment on above: Encounter for remova l of sutures (Primary Dx) Start: 01-02-2025 End: 01-02-2025 Transcribe Orders Ailin Rodriguez MD Work Phone: [facility] Comment on above: Malignant melanoma o f torso excluding breast (HCC) (Primary Dx) Start: 12-29-2024 End: 12-29-2024 Bamboo flowsheet [facility] Start: 12-29-2024 End: 12-29-2024 Bamboo flowsheet Ailin Rodriguez MD Work Phone: [facility] Start: 12-29-2024 End: 12-29-2024 Patient encounter procedure [facility]ilin Rodriguez MD [facility] Comment on above: Malignant melanoma o f torso excluding breast (HCC) (Primary Dx) Start: 12-29-2024 End: 12-29-2024 ambulatory AILIN RODRIGUEZ Not Available Start: 12-05-2024 End: 12-05-2024 Office outpatient new 30 minutes Lora Yeager PA Work Phone: [facility] Comment on above: Melanocytic nevus of trunk (Primary Dx); Lentigines; Seborrheic keratosis; Neoplasm of unspecified behavior of bone, soft tissue, and skin Start: 12-05-2024 End: 12-05-2024 ambulatory LORA YEAGER Not Available Start: 02-28-2024 Patient encounter status [facility] Start: 02-28-2024 End: 02-28-2024 ambulatory [facility] Work Phone: Start: 02-28-2024 End: 02-28-2024 Encounter for general adult medical examination without abnormal findings [facility] Start: 02-28-2024 End: 02-28-2024 Patient encounter procedure [facility] Phys[facility] Work Phone: Start: 04-25-2022 End: 04-26-[address] RONEL VIDES Facility:[facility] Start: 09-14-2021 End: 09-14-[address] RONEL VIDES Facility:[facility] Start: 09-12-2021 Encounter for genera l adult medical examination without abnormal findings DR RONEL VIDES [facility] Start: 09-08-2021 End: 09-09-[address] RONEL VIDES Facility:[facility] Start: 09-08-2021 End: 09-09-2021 Encounter for general adult medical examination without abnormal findings DR RONEL VIDES Facility:[facility] Procedures Date Procedure Procedure Detail Performing Clinician Start: 12-29-2024 SKIN EXCISION Ailin whitehead MD Work Phone: Start: 12-29-2024 SKIN REPAIR Ailin de dios MD Work Phone: Start: 12-05-2024 End: 12-05-2024 SKIN / NAIL BIOPSY Lora STARK Work Phone: Plan of Treatment Date Care Activity Detail Author Start: 12-08-2025 End: 12-08-2025 Patient encounter procedure [facility] Start: 03-30-2025 End: 03-30-2025 Patient encounter procedure 03/30/2025 2:10 PM EST Office Visit [facility] [address] [place] [address] Lora Yeager PA [address] [place] [address] [facility] Start: 01-13-2025 End: 01-13-2025 Patient encounter procedure 01/13/2025 8:50 AM EDT Office Visit [facility] [address] [place] [address] Lora Yeager PA [address] [place] [address] [facility] Start: 12-29-2024 End: 12-29-2024 Patient encounter procedure 12/29/2024 10:00 AM EDT Office Visit [facility] [address] [place] [address] Ailin Rodriguez MD [address] [place] [address] Arrived [facility] Comment on above: Arrived CT [facility] Sinuses [facility] Dermatopathology exam Dermatopat hology exam Pathology and Cytology Timed Neoplasm of unspecified behavior of bone, soft tissue, and skin Release Upon Ordering for 1 Occurrences starting 12/05/2024 [facility] Graine de Cadeaux Work Phone: Comment on above: Release Upon Ordering for 1 Occurrences starting 12/05/2024 Dermatopathology exam Dermatopat hology exam Pathology and Cytology Timed 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) Release Upon Ordering for 1 Occurrences starting 12/29/2024 [facility] Graine de Cadeaux Work Phone: Comment on above: Release Upon Ordering for 1 Occurrences starting 12/29/2024 MG Breast - bilatera l Screening [facility] Payers Date Payer Category Payer Private Health Insurance [id number] 2024 Private Health Insurance [id number] 2019 Unknown [id number] 1980 Unknown [id number] 2.16.84 [id number] 1980 Unknown [id number] 2.16.84 [id number] 1980 Unknown [id number] 2.16.84 [id number] 1980 Unknown [id number] 2.16.8 [id number] 1980 Unknown [id number] 2.16.8 [id number] 1980 Unknown [id number] 2.16.8 [id number] 1980 Unknown [id number] 2.16.8 [id number] Social History Date Type Detail Facility Start: 02-28-2024 End: 12-05-2024 Tobacco smoking status NDIS Never smoked tobacco (finding) [facility] Start: 1980 Sex Assigned At Female F [facility] Start: 12-05-2024 Tobacco use and exposure Smokeless tobacco non-user [facility] Start: 12-05-2024 End: 12-29-2024 History of Social function [facility] Start: 12-05-2024 End: 12-29-2024 Tobacco use panel [facility] Start: 1980 Sex assigned at Not on file N [facility] Tobacco smoking status NDIS Tobacco smoking consumption unknown [facility] Start: 01-02-2025 Sex Female [facility] Sex Female (finding) [facility] Clinical Notes 12-05-2024 to 02-03-2025 Note Date & Type Note Facility 02-03-2025 Evaluation note Diagnosis Onset Date Resolution Neck swelling acute January 132024 5:40pm History of melanoma in situ acute February 06, 2025 1:24pm Lymphadenopathy of right cervical region acute February 06, 2025 1:24pm [facility] Work Phone: 1(724) 852-322109-02-2025 History of Present illness Narrative* LINCOLN Freitas - 01/13/2025 8:50 AM EDT Images from the original note were not included. Suture Removal Patient here for suture removal: No complaints of redness, drainage or swelling at site, compliant with wound care. Location: left buttock Procedure Performed: Excision Date of Procedure: 12/29/2024 Medications: Mupirocin 2% ointment All pertinent medical history, medications, and allergies were reviewed. General Exam: alert, oriented to person, place, and time, normal affect, well appearing Accompanied by spouse A focused exam completed based on patient reported problems, see below: Skin Exam 1. ENCOUNTER FOR REMOVAL OF SUTURES Right Abdomen (side) - Lower Sutures are intact, Skin edges are well-approximated, Mild erythema along incision line Suture Removal: Procedure: Sutures were removed without difficulty. Tincture of Benzoin was applied around site in preparation of steri-strips. Steri-strips were applied Post-Procedure instructions: Instructed to discontinue wound care., Instructed to keep steri stripson for at least 5-7 days., Pathology results discussed. Next Visit: as scheduled [id number] History of Present illness Narrative* Ailin Rodriguez MD - 12/29/2024 10:00 AM EDT Images from the original note were not included. Lester Aleman is a 44 y.o. female who presents for the following: Excision. Location: left buttock Date of biopsy: 12/05/2024 Diagnosis: Malignant Melanoma Pre-Op Checklist: History of pacemaker/defibrillator: No History of joint replacement in the past 2 years: No History of HIV/Hepatitis B/Hepatitis C: No Latex allergy: No Is the patient currently on a blood thinner? No. . All pertinent medical history, medications, and allergies were reviewed. Surgical assistants: Denita Neville CMA and Denita Carrasquillo MA Objective Well appearing patient in no apparent distress; mood and affect are within normal limits. Skin Exam 1. MALIGNANT MELANOMA OF TORSO EXCLUDING BREAST (HCC) Left Buttock Leigh macule at biopsy site No cervical, axillary, or supraclavicular lymphadenopathy Skin excision Lesion length (cm): 1.3 Lesion width (cm): 0.6 Margin per side (cm): 1 Total excision diameter (cm): 3.3 Informed consent: discussed and consent obtained Informed consent comment: Risks and possible complications were discussed as noted on the consent form. The consent form was signed prior to the procedure. Timeout: patient name, date of , surgical site, and procedure verified Timeout comment: Patient and provider identified site. Site was marked and excision was drawn out. Photo was taken and shown to patient, patient verified this is the correct site. Procedure prep: Patient was prepped and draped in usual sterile fashion (The planned incision lineswere drawn along relaxed skin tension lines, if possible, to minimize scarring and deformity of surrounding structures.) Prep type: Chlorhexidine Anesthesia: the lesion was anesthetized in a standard fashion Anesthesia comment: The local anesthetic was injected to create a field block at the site of the procedure. Anesthetic: 1% lidocaine w/ epinephrine 1-100,000 buffered w/ 8.4% NaHCO3 Instrument used: #15 blade Instrument used comment: Incisions were made as drawn, and the surrounding tissue was undermined until the skin edges could be approximated without undue tension. Any tissue redundancies were removed. Hemostasis achieved with: electrodesiccation Additional details: Amount of lidocaine used: 13.0 ml Estimated blood loss: 2.0 ml Skin repair Complexity: Intermediate Final length (cm): 8.5 Reason for type of repair: allow closure of the large defect Undermining: edges undermined Undermining comment: The surrounding tissue was undermined until the skin edges could be approximated without undue tension. Any tissue redundancies were removed. Subcutaneous layers (deep stitches): Suture size: 5-0 Suture type comment: Biosyn Stitches: Buried horizontal mattress (Closure was performed in a layered fashion with subcutaneous tissue closed first using tension-bearing absorbable sutures to the level of the superficial fascia.) Fine/surface layer approximation (top stitches): Suture size: 4-0 Suture type: Prolene (polypropylene) Stitches: simple running Stitches comment: Epicuticular skin sutures were then placed with minimal tension. Outcome: patient tolerated procedure well with no complications Post-procedure details: sterile dressing applied and wound care instructions given Post-procedure details comment: It was emphasized to the patient to contact the office for any signs of infection, uncontrollable bleeding, or complications. Dressing type: bandage Specimen A - Dermatopathology exam Differential Diagnosis: MM Check Margins: Yes Size of lesion: 1.3 x 0.6 cm Previous accession number: [id number] Diagnosis: (C43.59) 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) Plan: Skin excision, Skin repair Patient denies history of excessive tanning bed use. Given young age of onset of her melanoma and family history of breast cancer and pancreatic cancer, recommend referral to genetics to rule out possible familial cancer syndrome. Related Procedures Ambulatory referral to Genetics Related Medications mupirocin (Bactroban) 2 % ointment Apply to affected area on buttock once daily with dressing change Follow up: 14 days for s/r documented in this [facility]Saint [facility] [id number] History of Present illness Narrative* LINCOLN Freitas - 12/05/2024 11:20 AM EDT Images from the original note were not included. Skin Check Location: Patient requests a full body skin examination Dermatologic history: no history of skin cancer, no history of atypical moles New patient Lesions: Location: chest Duration: months Quality: itchy Modifying factors: aggravated by picking Associated symptoms: rough Treatments: none All pertinent medical history, medications, and allergies were reviewed. General Exam: alert, oriented to person, place, and time, normal affect, well appearing Unaccompanied Scalp, Examined Right leg Examined Head, Face Examined Left leg Examined Neck Examined Right foot Examined Chest Examined off Left foot Examined Back Examined Buttocks Examined Patient kept underwear on Abdomen Examined Digits,nails: Examined Right arm Examined Patient wearing nail georgian, Denies dark streaks on toenails Left arm Examined Lymphatics: Not examined Hands Examined Skin Exam 1. MELANOCYTIC NEVUS OF TRUNK Generalized Scattered benign appearing, regular brown to light brown melanocytic papules and macules with similar morphology Counseled regarding these benign growths. Rarely, a nevus can develop into malignant melanoma, so any changing nevi should be promptly re-evaluated. 2. LENTIGINES Generalized Scattered ryan macules in sun-exposed areas. The patient was informed that lentigines are benign pigmented lesions that occur on sun-exposed andsun-damaged skin. No treatment is necessary. Recommended regular use of broad spectrum sunscreen SPF 30 or higher 3. SEBORRHEIC KERATOSIS Chest - Medial (Center) Stuck on verrucous, variably pigmented papules and plaques. Patient was counseled regarding these benign growths. Removal is normally not necessary, but they may be removed if they are symptomatic or for cosmetic reasons. 4. NEOPLASM OF UNSPECIFIED BEHAVIOR OF BONE, SOFT TISSUE, AND SKIN (2) Left Upper Arm - Anterior Irregularly pigmented macule Lesion biopsy Type of biopsy: tangential Informed consent: discussed and consent obtained Informed consent comment: The risks and benefits of the biopsy were discussed. Risks include but are not limited to bleeding, infection, scarring, pain, and nerve damage. An opportunity to ask questions prior to the procedure was permitted and all questions were answered. Patient was prepped and draped in usual sterile fashion: area cleansed with alcohol. Anesthesia: the lesion was anesthetized in a standard fashion Anesthetic: 1% lidocaine w/ epinephrine 1-100,000 buffered w/ 8.4% NaHCO3 Instrument used: DermaBlade Hemostasis achieved with: electrodesiccation Outcome: patient tolerated procedure well Outcome comment: The specimen was placed in a prelabeled formalin container to be sent for pathology Post-procedure details: sterile dressing applied and wound care instructions given Post-procedure details comment: Emphasized need to contact clinic for any signs of infection, uncontrollable bleeding, or complications. Dressing type: bandage Additional details: Photo taken yes Amount of lidocaine used: 1.0 cc Specimen A - Dermatopathology exam Differential Diagnosis: atypical nevus Check Margins: No Size of lesion: 0.5 x 0.4 cm Left Buttock Irregularly pigmented macule Lesion biopsy Type of biopsy: tangential Informed consent: discussed and consent obtained Informed consent comment: The risks and benefits of the biopsy were discussed. Risks include but are not limited to bleeding, infection, scarring, pain, and nerve damage. An opportunity to ask questions prior to the procedure was permitted and all questions were answered. Patient was prepped and draped in usual sterile fashion: area cleansed with alcohol. Anesthesia: the lesion was anesthetized in a standard fashion Anesthetic: 1% lidocaine w/ epinephrine 1-100,000 buffered w/ 8.4% NaHCO3 Instrument used: DermaBlade Hemostasis achieved with: electrodesiccation Outcome: patient tolerated procedure well Outcome comment: The specimen was placed in a prelabeled formalin container to be sent for pathology Post-procedure details: sterile dressing applied and wound care instructions given Post-procedure details comment: Emphasized need to contact clinic for any signs of infection, uncontrollable bleeding, or complications. Dressing type: bandage Additional details: Photo taken yes Amount of lidocaine used: 1.0 cc Specimen B - Dermatopathology exam Differential Diagnosis: atypical nevus Check Margins: No Size of lesion: 1.3 x 0.6 cm Next Visit: 1 [facility] Diagnosis Onset Date Resolution Status Screening mammogram for breast cancer acute Wellness examination [facility] Work Phone: Evaluation note* Diagnosis Melanocytic nevus of trunk- Primary Benign neoplasm of skin of trunk, except scrotum Lentigines Seborrheic keratosis Neoplasm of unspecified behavior of bone, soft tissue, and skin [facility] Diagnosis 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)- Primary [facility] Diagnosis 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)- Primary [facility] Encounter for removal of sutures- Primary [facility] noteNo assessment information availableMer[facility] Work Phone: Reason for referral (narrative)No reason for referral information availableMercy Health St[facility] Work Phone: Summary Purpose Family History No Family History Records Found Relationship Condition Age at Onset Recorded Date/T george father Diabetes mellitus Unknown Unknown Hypertension Unknown mother Malignant neoplasm Unknown Advance Directives No Advanced Directives Records Found Advance Directive Response Recorded Date/ Time Advance Directives No February 28, 2024 8:52am Chief Complaint and Reason for Visit Chief Complaint wellness Reason for Visit Screening mammogram for breast cancer Wellness examination Chief Complaint Admit Date right swollen neck February 03, 2025 5:40pm Chief Complaint Admit Date right swollen neck February 03, 2025 5:40pm Swollen Lymph Nodes February 06, 2025 1:24pm Reason for Visit Admit Date Neck swelling February 03, 2025 5:40pm History of melanoma in situ February 062024 1:24pm Lymphadenopathy of right cervical region February 06, 2025 1:24pm Additional Source Comments INFORMATION SOURCE (unrecogn ized section and content) DATE CREATED AUTHOR 05/05/2022 [facility] DATE CREATED AUTHOR AUTHOR'S ORGANIZ ATION 01/13/2025 [facility] DATE CREATED AUTHOR AUTHOR'S ORGANIZ ATION 02/16/2025 [facility] pital Care Teams (unrecognized sec tion and content) Team Status: Active Member Role Status Dates Ronel Vides MD Primary Care Provider Active Team Status: Inactive Member Role Status Dates Ronel Vides MD Primary Care Provide r, Attending Provider Active Start: February 28, 2024 End: February 28, 2024 Inspector [employer] Type[employer] Relationship Specialty Start Date End Date Ailin Rodriguez MD [address] [place] [id number] Dermatology 01/02/25 Team Status: Inactive Member Role Status Dates Ronel Vides MD Primary Care Provider Active Start: February 03, 2025 End: February 03, 2025 Елена Johnston APRN [employer] Attending Provider Active Start: January End: February 03, 2025 Team Status: Inactive Member Role Status Dates Ronel Vides MD Primary Care Provider Active Start: February 06, 2025 End: February 06, 2025 Ronel Vides MD Attending Provider Active St art: February 06, 2025 End: February 06, 2025 Goals (unrecognized section and content) Goals may be documented in a n alternate sectionGoals may be documented in an alternate sectionGoals may be documented in an alternate section Reason for Visit (unrecogniz ed section and content) Reason Comments Skin Check Reason Comments Excision Source Comments (unrecognize d section and content) In the event this informatio n is protected by the Federal Confidentiality of Alcohol and Drug Abuse Patient Records regulations: The Federal rules restrict any use of the information to criminally investigate or prosecute any alcohol or drug abuse patient.[facility] FOR RECORDS PERTAINING TO PATIENTS WHO ARE [...] BE BASED ON THE PRIMARY CLINICAL RECORDS. [facility] [employer] [facility]. provides no warranty or guarantee of the accuracy or completeness of information in this document.
== END 2025-02-26 15:12 | disposition home or self-care (01) ==
LOC: CT 15:11
PROVIDERS: PCP Family Medicine; Visit Provider Family Medicine
DX: R59.0 Localized enlarged lymph nodes (principal); Z86.006 Personal history of melanoma in-situ
CPT/HCPCS: 70486; 70491; Q9967

== ENCOUNTER 2025-04-24 08:45 | Outpatient (OUT) | payer OTHER, SELFPAY ==
--- OUTSIDE RECORDS SUMMARY | 2025-04-24 08:48 | XMS_ITS | CCD ---
Author Organization [facility] Care Team Providers Care Pricing Consultant Name Role Phone MAHOGANY, DR RONEL Nugent Attending Unavailable Odell, DR Santiago Consulting Unavailable MAHOGANY, DR RONEL Nugent Primary Care Unavailable VIDES, DR RONEL Nugent Admitting Unavailable MAHOGANY, DR RONEL Nugent Consulting Unavailable MAHOGANY, DR RONEL Nugent Admitting Unavailable VIDES, DR RONEL Nugent Attending Unavailable Odell, DR Santiago Consulting Unavailable MAHOGANY, DR RONEL Nugent Primary Care Unavailable MAHOGANY, DR RONEL Nugent Consulting Unavailable MAHOGANY, DR RONEL Nugent Referring Unavailable VIDES, DR RONEL Nugent Attending Unavailable Odell, DR Santiago Consulting Unavailable MAHOGANY, DR RONEL Nugent Primary Care Unavailable VIDES, DR RONEL Nugent Admitting Unavailable VIDES, DR RONEL Nugent Consulting Unavailable Unavailable Primary Care Provider UnavailAilin Valverde MD Unavailable [phone] Ronel Vides MD Primary Care Provider Елена Johnston APRN Attending Provider Ronel Vides MD Attending Provider NNAMDI DURAN Referring Unavailable RONEL VIDES Primary Care Unavailable Ronel Vides MD Primary Care Provider JOSE YEAGER Attending Unavailable AILIN RODRIGUEZ Attending Unavailable JOSE YEAGER Attending Unavailable BRIAN VILLATORO Attending Unavailable Medications Current Medications MedicationDrug Class(es)DatesSig (Normalized)Sig (Original)amoxicillin 875 mg / clavulanate 125 mg oral tablet (7 sources)Penicillin-class AntibacterialStart: 50-23-8466lyaiqjflvpz- clavulanate (Augmentin) 875-125 MG tablet 1 tablet 02/03/2025 ActiveStart: 02-03-2025 End: 32-75-2333nqdy 1 tablet by mouth every twelve hoursdexamethasone 1 mg/ml / neomycin 3.5 mg/ml / polymyxin b 30693 unt/ml ophthalmic suspension (3 sources)Aminoglycoside Antibacterial, Polymyxin-class Antibacterial, CorticosteroidStart: 45-42-4728Mimpfzac-Polymyxin B-Dexameth 3.5mg/mL-10,000 unit/mL-0.1 % drops,suspension Active DROPS OPHTHALMIC February 03, 2025 12:00am Complies with drug therapyibuprofen 800 mg oral tablet (13 sources)Nonsteroidal Anti-inflammatory DrugStart: 04-03-2024 End: 56-25-8224cwnd 1 tablet by mouth every eight hours as needed for headache Ibuprofen 800 mg tablet Active 0 .ROUTE .COMPLEX 90 May 19, 2024 11:20am TAKE 1 TABLET BY MOUTH EVERY 8 HOURS NEEDED FOR HEADACHE Complies with drug therapyStart: 02-28-2024 End: 60-85-3796jnzf 1 tablet by mouth every eight hours as needed for headache Ibuprofen 800 mg tablet Discontinued 800 MG PO Every 8 hours as needed for headache 90 90 February 28, 2024 9:35am April 03, 2024 9:16am Btskczamutqa-Lb-Esvx-Minerals (Women's Daily Formula) 27-0.4 mg tablet (4 sources)Start: 62-33-8679vzrd 1 tablet by mouth once daily Jcxgnnrrmmot-Sk-Umlm-Minerals (Women's Daily Formula) 27-0.4 mg tablet Active TAB PO February 28, 2024 12:00am Complies with drug therapyStart: 02-28-2024 take 1 tablet by mouth once kwwasQkykcbgpxojg-Nw-Ofod-Minerals (Women's Daily Formula) 27-0.4 mg tablet Active TAB PO February 28, 2024 12:00ammupirocin 0.02 mg/mg topical ointment (2 sources)RNA Synthetase Inhibitor AntibacterialStart: 12-29-2024 End: 20-32-1308nlkqwwirt (Bactroban) 2 % ointment Indications: 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) Apply to affected area on buttock once daily with dressing change 22 g 12/29/2024 01/08/2025 Active Problems Active Problems Problem ClassificationProblemDateDocumented DateEpisodic/ChronicCancer of bone and connective tissue (6 sources)Malignant melanoma of trunk; 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]42-74-3490CdvsvvmErsrtviipymst and screening for infectious disease (1 source)Encounter for screening for human papillomavirus (HPV); Translations: [Encounter for screening for human papillomavirus (HPV)]Onset: 02-11-2025 EpisodicLymphadenitis (11 sources)Cervical lymphadenopathy; Translations: [Localized enlarged lymph nodes]Onset: 03-03-2025 Resolved: 185813-02-8193BmrscezpOvkyeslkp of unspecified nature or uncertain behavior (2 sources)Neoplastic disease; Translations: [Neoplasm of unspecified behavior of bone, soft tissue, and skin]71-90-3572MxuspisqAjbdp aftercare (2 sources)Removal of sutures done; Translations: [Encounter for removal of sutures]36-97-6490LaylymunSlpqb and unspecified benign neoplasm (2 sources)Melanocytic nevus of trunk; Translations: [Melanocytic nevi of trunk] 57-66-5630DlitrnzbMkijj skin disorders (2 sources)Lentiginosis; Translations: [Other melanin hyperpigmentation] 37-45-7201QxmnirmmTknid skin disorders (2 sources)Seborrheic keratosis; Translations: [Other seborrheic keratosis] 98-19-1891JwrjaylzHhkpiicityrr (1 source)R59.0 - Localized enlarged lymph nodes,Z86.006 - Personal history of melanoma in-situ,R22.1 - Localized swelling, mass and lump, neck Past or Other Problems Problem ClassificationProblemDateDocumented DateEpisodic/ChronicGenitourinary symptoms and ill-defined conditions (6 sources)Genuine stress incontinence; Translations: [Stress incontinence (female) (male)]Onset: 03-03-2025 Resolved: 624859-81-5427ZteoumbVhzivzvnl of skin (13 sources)H/O Malignant melanoma; Translations: [Personal history of malignant melanoma of skin]Onset: 03-03-2025 Resolved: 213071-43-0795QowuaydzMbtizpqmqcfj breast conditions (12 sources)Disorder of breast, unspecified; Translations: [Other specified disorders of breast]Onset: 09-12-2021 Resolved: 46-38-6019KzdywqgrSdyop and delivery including normal (3 sources)Delivery normal; Translations: [Encounter for full-term uncomplicated delivery]Onset: 03-03-2025 Resolved: 948944-10-6538SbpxqkmzYcnmy screening for suspected conditions (not mental disorders or infectious disease) (12 sources)Other abnormal and inconclusive findings on diagnostic imaging of breast; Translations: [Patient encounter status]Onset: 04-25-2022 Resolved: 20-27-5583NxajqvrnQhjop skin disorders (7 sources)Neck swelling; Translations: [Localized swelling, mass and lump, neck]Onset: 03-03-2025 Resolved: 410431-71-7199YdrcuypbAyeopmxz codes; unclassified (3 sources)Gestation period, 39 weeks; Translations: [39 weeks gestation of ]Onset: 03-03-2025 Resolved: 833183-83-3304Afvuhbuq Results Test NameValueInterpretationReference RangeFacilityHPV DNA High Riskon 10-37-8344BFO InterpNormalMccullough-Hyde Memorial HospitalComment on above:Result Comment: This test amplifies and detects DNA [...] suspected sexual abuse or for other forensic purposes.Performed By: #### HPVH #### [address] [place] [address] Clinical Documentation Developer: Aakash Mcneill MDHPV Type 16Not detectedNormalNOTDETMercy New Milford HospitalComment on above:Performed By: #### HPVH #### [address] [place] [address] Clinical Documentation Developer: Aakash Mcneill MDHPV Type 18Not detectedNormTrinity Health SystemComment on above:Performed By: #### HPVH #### [facility] HospitalT[facility] [place] [address] Clinical Documentation Developer: Aakash Mcneill MDOther High Risk HPVNot detectedNormalNOTOhioHealth Shelby Hospital HospitalComment on above:Performed By: #### HPVH #### [facility] HospitalTarena [address] [place] [address] Clinical Documentation Developer: Aakash Mcneill MDHPV DNA High Riskon 41-22-2678EAT Sample.THIN PREPNormFayette County Memorial Hospital HospitalComment on above:Performed By: #### HPVH #### [address] [address] Clinical Documentation Developer: NATALIE DonaldourceCERVICAL MATERIALCleveland Clinic Avon HospitalComment on above:Performed By: #### HPVH #### [address] [address] Clinical Documentation Developer: Aakash Mcneill [facility] MIAMIytology Reporton 17-32-7955Kvciccag report Cyto stain.thin prep Doc (Cvx/Vag)(NOTE) Path Number: [id number] DIAGNOSIS Imaged ThinPrep Pap - Cervical (1 monolayer slide): Specimen Adequacy: Satisfactory for evaluation. - Endocervical/transformation zone component present. Descriptive Diagnosis: Negative for [...] or for other forensic purposes. 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 [email or web address] [facility] ANATOMIC PATHOLOGY [address] [place] [address]. [place], [place] [address] [facility] Lesion length (cm): 1.3 Lesion width (cm): [...] used: 13.0 ml Estimated blood loss: 2.0 mlNOMS [facility] HospitalComplexity: Intermediate Final length (cm): 8.5 Reason for [...] infection, uncontrollable bleeding, or complications. Dressing type: OpenetNo Panel InformationOrdered By: Dora Neville on 16-61-5136GORQ Geogo[employer] Work Phone: No Panel Informationon 41-40-3460Mqeg of biopsy: tangential Informed consent: discussed and [...] taken yes Amount of lidoc[facility]: [facility] Informed consent: discussed and [...] taken yes Amount of lidocaine used: 1.0 [facility] AnsonMG MAMM DX 3D RT CADon 95-07-6305MM MAMM DX 3D RT CADPatient: FER ALEMAN Exam Date: 04/25/2022 : 1980 Gender:F Ordering : DR RONEL VIDES M.D. Admission #: [id number] Family : Order #: [id number] CLICK HERE TO VIEW EXAM RADIOLOGY REPORT PROCEDURE: MAMMOGRAM DIAGNOSTIC 3D RIGHT CAD, 04/25/2022, 13:46 ULTRASOUND BREAST RIGHT LIMITED, 04/25/2022, 14:36 COMPARISON: US BREAST RIGHT LIMITED, 09/08/2021. MG MAMM DIAGNOSTIC 3D TATE CAD, 09/08/2021. US BREAST RIGHT LIMITED, 07/14/2015. MAMMO POST BIOPSY RIGHT, 09/14/2021. INDICATIONS: Abnormal findings on diagnostic imaging of breast Calculator Name [facility] Breast Cancer Risk Assessment Tool 5 Year Breast Cancer Risk 2.90% Lifetime Breast Cancer Risk 29.10% Personal Breast Cancer No Personal Ovarian Cancer No Treatments None Family Cancers Mother with breast cancer at age 72; Aunt-maternal with breast cancer at age 54; Aunt-maternal with pancreatic cancer at age 65. LOCATION: [facility] BREAST COMPOSITION: Extremely dense, which lowers the [...] by: Jack Bain M.D. on 04/25/2022 at 14:56[facility] FoundationUS BREAST RIGHT LIMITEDon 59-49-5018TI BREAST RIGHT LIMITEDPatient: FER ALEMAN Exam Date: 04/25/2022 : 1980 Gender:F Ordering : DR RONEL VIDES M.D. Admission #: [id number] Family : Order #: [id number] CLICK HERE TO VIEW EXAM RADIOLOGY REPORT [...] pancreatic cancer at age 67. LOCATION: [facility] BREAST COMPOSITION: Extremely dense, which lowers the [...] by: Jack Bain M.D. on 04/25/2022 at 14:56[facility] FoundationMAMMO POST BIOPSY RIGHTon 31-05-0702KIBZV POST BIOPSY RIGHTPatient: FER ALEMAN Exam Date: 09/14/2021 : 1980 Gender:F Ordering : DR RONEL VIDES M.D. Admission #: [id number] Family : Order #: [id number] CLICK HERE TO VIEW EXAM This report [...] by: Jack Bain M.D. on 09/20/2021 at 12:07[facility] FoundationUS VAC ASST BX BRST RT W CLIPon 30-89-5776GH VAC ASST BX BRST RT W CLIP Patient: FER ALEMAN Exam Date: 09/14/2021 : 1980 Gender:F Ordering : DR RONEL VIDES M.D. Admission #: [id number] Family : Order #: [id number] CLICK HERE TO VIEW EXAM This report [...] by: Jack Bain M.D. on 09/20/2021 at 12:06[facility] AUTO DIFFon 39-17-7505XVCP #0.1 103/ulNormal0.0-0.1The [facility] For RehabilitationComment on above:Performed By: #### TSH, CMP, LIPID #### [facility] Laboratory [address] [place] [address] Dr. Valery WalkerBasophils/100 WBC (Bld)0.6 %Normal0.2-2.0[facility] Comment on above:Performed By: #### TSH, CMP, LIPID #### [facility] [address] [place] [address] Dr. Valery Real #0.2 103/ulNormal0.0-0.7The [facility] For RehabilitationComment on above: Performed By: #### TSH, CMP, LIPID #### [facility] [address] [place] [address] Dr. Valery Aburtoosinophils/100 WBC (Bld)2.8 %Normal0.9-7.0[facility] Comment on above:Performed By: #### TSH, CMP, LIPID #### [facility] [address] [place] [address] Dr. Valery Aburtorythrocyte distribution width (RBC) [Ratio]13.6 %Nrtdmv65.0-15.0 [facility] HospitalComment on above:Performed By: #### TSH, CMP, LIPID #### [facility] [address] [place] [address] Dr. Valery WalkerHematocrit (Bld) [Volume fraction]43.1 %Shseti64.0-48.0The [facility] For RehabilitationComment on above:Performed By: #### TSH, CMP, LIPID #### [facility] [address] [place] [address] Dr. Valery WalkerHemoglobin (Bld) [Mass/Vol]14.1 g/nJTfrwhe08.0-16.0The [facility] For RehabilitationComment on above:Performed By: #### TSH, CMP, LIPID #### [facility] [address] [place] [address] Dr. Valery Chua #0.02 10e3/ulNormal0.00-0.03The [facility] For RehabilitationComment on above:Performed By: #### TSH, CMP, LIPID #### [facility] [address] [place] [address] Dr. Valery Chua %0.3 %Normal0.0-0.5The [facility] Hospital For RehabilitationComment on above: Performed By: #### TSH, CMP, LIPID #### [facility] [address] [place] [address] Dr. Valery Salinas #3.4 103/ulNormal1.2-3.8The [facility] For RehabilitationComment on above:Performed By: #### TSH, CMP, LIPID #### [facility] [address] [place] [address] Dr. Valery Monterohocytes/100 WBC (Bld)43.2 %Crelkl06.5-60.0[facility] For RehabilitationComstraith hospital for special surgery on above:Performed By: #### TSH, CMP, LIPID #### [facility] [address] [place] [address] Dr. Valery NealUAL DIFF REQNONormalThe [facility] For RehabilitationComment on above: Performed By: #### TSH, CMP, LIPID #### [facility] [address] [place] [address] Dr. Valery Levy (RBC) [Entitic mass]28.0 ceDlrbaw74.7-34.0The [facility] For RehabilitationComment on above:Performed By: #### TSH, CMP, LIPID #### [facility] [address] [place] [address] Dr. Valery Ramirez (RBC) [Mass/Vol]32.7 g/eCLtrlrl50.9-35.2The [facility] For RehabilitationComment on above:Performed By: #### TSH, CMP, LIPID #### [facility] [address] [place] [address] Dr. Valery Delatorre (RBC) [Entitic vol]85.5 hNIzqhsw06.0-99.0The [facility] For RehabilitationComment on above:Performed By: #### TSH, CMP, LIPID #### [facility] [address] [place] [address] Dr. Valery Valdez #0.4 103/ulNormal0.3-0.8The [facility] For RehabilitationComment on above:Performed By: #### TSH, CMP, LIPID #### [facility] [address] [place] [address] Dr. Valery Zavalaocytes/100 WBC (Bld)4.7 %Normal1.7-12.0The [facility] Comment on above:Performed By: #### TSH, CMP, LIPID #### [facility] [address] [place] [address] Dr. Valery Valdez #3.8 103/ulNormal1.4-6.5The [facility] For RehabilitationComment on above:Performed By: #### TSH, CMP, LIPID #### [facility] [address] [place] [address] Dr. Valery Alejandrautrophils/100 WBC (Bld)48.4 %Aucbhe35.0-75.0The [facility] For RehabilitationComment on above:Performed By: #### TSH, CMP, LIPID #### [facility] [address] [place] [address] Dr. Valery Hillman mean volume (Bld) [Entitic vol]10.3 fLNormal9.5-13.5The [facility] For RehabilitationComment on above:Performed By: #### TSH, CMP, LIPID #### [facility] [address] [place] [address] Dr. Valery WalkerPLT286 103/oxNsyozu319-288Nmq [facility] on above: Performed By: #### TSH, CMP, LIPID #### [facility] [address] [address] [address] Valery WalkerRBC5.04 106/ulNormal4.20-5.40The [facility] on above:Performed By: #### TSH, CMP, LIPID #### [facility] [address] [address] [address] Valery WalkerWBC7.9 103/ulNormal4.0-11.0The [facility] on above: Performed By: #### TSH, CMP, LIPID #### [facility] [address] [address] [address] Valery WalkerGLYCOHEMOGLOBIN A1Con 69-29-8941OHW RECOMMENDATIONSEE BELOWMarietta Osteopathic ClinicComstraith hospital for special surgery on above:Result Comment: ADA RECOMMENDED LIMIT 4.0 - 6.0 ADA THERAPEUTIC TARGET < 7.0 ACTION SUGGESTED > 7.0Performed By: #### A1C #### [facility] [address] [address] [address] Valery WalkerGlucose [Mass/Vol]108 mg/dLNoGreene Memorial Hospital on above:Performed By: #### A1C #### [facility] [address] [place] [address] Dr. Valery WalkerHbA1c (Bld) [Mass fraction]5.4 %Normal4.5-6.2The [facility] on above:Performed By: #### A1C #### [facility] [address] [place] [address] Dr. Valery WalkerLIPID PROFILEon 47-31-1196MRJL-HDL RATIO NORMSEE [facility] on above:Result Comment: 3.3 - 4.4 LOW RISK 4.4 - 7.1 AVERAGE RISK 7.1 - 11.0 MODERATE RISK >11.0 HIGH RISKPerformed By: #### TSH, CMP, LIPID #### [facility] [address] [address] [address] Valery WalkerCholesterol [Mass/Vol]191 mg/dLNormal<=200[facility] Comment on above:Performed By: #### TSH, CMP, LIPID #### [facility] [address] [address] [address] Valery WalkerCholesterol in HDL [Mass/Vol]56 mg/rEVehubf16-33Bve [facility] RehabilitationComment on above:Performed By: #### TSH, CMP, LIPID #### [facility] [address] [address] [address] Valery Pachecoesterol in LDL [Mass/Vol]115.6 mg/dLNoSouthview Medical CenterComment on above:Performed By: #### TSH, CMP, LIPID #### [facility] [address] [place] [address] Dr. Valery Abel.total/Cholesterol in HDL [Mass ratio]3.4 {ratio} NormalThe [facility] For RehabilitationComment on above:Performed By: #### TSH, CMP, LIPID #### [facility] [address] [address] [address] Valery Orozco NORMAL> or = 60 mg/dl - LOW CARDIOVASCULAR RISK <40 mg/dl - HIGH CARDIOVASCULAR RISKCleveland Clinic FoundationComment on above:Performed By: #### TSH, CMP, LIPID #### [facility] [address] [place] [address] Dr. Valery Khan CALC NORMALSEE BELOWCleveland Clinic FoundationComment on above:Result Comment: <100 mg/dl OPTIMAL 100 - 129 mg/dl NEAR OR ABOVE OPTIMAL 130 - 159 mg/dl BORDERLINE HIGH 160 - 189 mg/dl HIGH >190 mg/dl VERY HIGH Performed By: #### TSH, CMP, LIPID #### [facility] [address] [address] [address] Valery WalkerTriglyceride [Mass/Vol]97 mg/dLNormal<=150The [facility] Comment on above:Performed By: #### TSH, CMP, LIPID #### [facility] [address] [address] [address] Valery HernandezLDL CALC19.4 mg/dLNormalThe [facility]ersburg HospitalComment on above: Performed By: #### TSH, CMP, LIPID #### [facility] [address] [address] [address] Valery WalkerMG MAMM DIAGNOSTIC 3D TATE CADon 36-19-1998DI MAMM DIAGNOSTIC 3D TATE CADPatient: FER ALEMAN Exam Date: 09/08/2021 : 1980 Gender:F Ordering : DR RONEL VIDES M.D. Admission #: [id number] Family : Order #: [id number] CLICK HERE TO VIEW EXAM RADIOLOGY REPORT [...] pancreatic cancer at age 67. LOCATION: [facility] BREAST COMPOSITION: Extremely dense, which lowers the [...] M.D. on 09/08/2021 at 13:19 Approved by: aJck Bain M.D. on 09/08/2021 at 13:59NormalThe [facility] For RehabilitationPROF 14(COMP METB)on 63-27-6061Itrgcrg [Mass/Vol]3.8 g/dLNormal3.4-5.0 [facility] RehabilitationComment on above:Performed By: #### TSH, CMP, LIPID #### [facility] [address] [address] [address] Valery WalkerAlbumin/Globulin [Mass ratio]0.9 {ratio}NormalThe [facility] For RehabilitationComment on above:Performed By: #### TSH, CMP, LIPID #### [facility] [address] [address] [address] Valery Jones [Catalytic activity/Vol]71 U/XUnnpdp06-842Jux [facility] Companyment on above:Performed By: #### TSH, CMP, LIPID #### [facility] [address] [address] [address] Valery Clark [Catalytic activity/Vol]15 U/YEyctmf79-69Bvq [facility] For RehabilitationComment on above:Performed By: #### TSH, CMP, LIPID #### [facility] [address] [address] [address] Valery Payton gap [Moles/Vol]13.3 mmol/LNormalThe [facility] Comment on above:Performed By: #### TSH, CMP, LIPID #### [facility] [address] [address] [address] Valery WalkerAST [Catalytic activity/Vol]12 U/LCritically gla28-93Xzr [facility] Companyment on above:Performed By: #### TSH, CMP, LIPID #### [facility] [address] [address] [address] Valery WalkerBilirubin [Mass/Vol]0.5 mg/dLNormal0.2-1.0The [facility] Comment on above:Performed By: #### TSH, CMP, LIPID #### [facility] [address] [address] [address] Valery WalkerCalcium [Mass/Vol]8.6 mg/dLNormal8.5-10.1The [facility] Comment on above:Performed By: #### TSH, CMP, LIPID #### [facility] [address] [place] [address] Dr. Valery WalkerChloride [Moles/Vol]104 mmol/MDujoui06-133Zbs [facility] Comment on above:Performed By: #### TSH, CMP, LIPID #### [facility] [address] [place] [address] Dr. Valery WalkerCO2 [Moles/Vol]25.4 mmol/DJjjuzd16.0-32.0[facility] Comment on above:Performed By: #### TSH, CMP, LIPID #### [facility] Laboratory [address] [place] [address] Dr. Valery WalkerCreatinine [Mass/Vol]0.67 mg/dLNormal0.55-1.02[facility] HospitalComment on above:Performed By: #### TSH, CMP, LIPID #### [facility] [address] [place] [address] Dr. Valery AburtoGFR-AF NORTH KOREAN>60Normal>=60[facility] RehabilitationComment on above:Performed By: #### TSH, CMP, LIPID #### [facility] [address] [place] [address] Dr. Valery Schmidt-NON AF NORTH KOREAN>60Normal>=60[facility] RehabilitationComment on above:Performed By: #### TSH, CMP, LIPID #### [facility] [address] [place] [address] Dr. Valery WalkerGlobulin (S) [Mass/Vol]4.0 g/dLNormalThe [facility] RehabilitationComment on above:Performed By: #### TSH, CMP, LIPID #### [facility] [address] [place] [address] Dr. Valery WalkerGlucose [Mass/Vol]99 mg/fFYsmosv01-394Aqi [facility] Comment on above:Performed By: #### TSH, CMP, LIPID #### [facility] [address] [place] [address] Dr. Valery WalkerPotassium [Moles/Vol]4.7 mmol/LNormal3.5-5.1[facility] Comment on above:Performed By: #### TSH, CMP, LIPID #### [facility] [address] [place] [address] Dr. Valery WalkerProtein [Mass/Vol]7.8 g/dLNormal6.1-8.2[facility] Comment on above:Performed By: #### TSH, CMP, LIPID #### [facility] [address] [place] [address] Dr. Valery WalkerSodium [Moles/Vol]138 mmol/KLnvcxr096-935Vgo [facility] Comment on above:Performed By: #### TSH, CMP, LIPID #### [facility] [address] [place] [address] Dr. Valery WalkerUrea nitrogen [Mass/Vol]14.0 mg/dLNormal7.0-18.0[facility] RehabilitationComment on above:Performed By: #### TSH, CMP, LIPID #### [facility] [address] [place] [address] Dr. Valery Shipman nitrogen/Creatinine [Mass ratio]20.9 mg/mgNoSouthview Medical CenterComment on above:Performed By: #### TSH, CMP, LIPID #### [facility] [address] [place] [address] Dr. Valery Hawthorne 31-58-1398KBG4.292 uIU/mLNormal0.470-4.680[facility] RehabilitationComment on above:Performed By: #### TSH, CMP, LIPID #### [facility] [address] [place] [address] Dr. Valery Fonseca [facility] BELOWCleveland Clinic FoundationComment on above: Result Comment: <0.34 UIU/ml HYPERTHYROID 0.34-5.60 UIU/ml EUTHYROID >5.60 UIU/ml HYPOTHYROIDPerformed By: #### TSH, CMP, LIPID #### [facility] [address] [place] [address] Dr. Yilan ChangUS BREAST RIGHT LIMITEDon [id number] BREAST RIGHT LIMITED Patient: FER ALEMAN Exam Date: 09/08/2021 : 1980 Gender:F Ordering : DR RONEL IVDES M.D. Admission #: [id number] Family : Order #: [id number] CLICK HERE TO VIEW EXAM RADIOLOGY REPORT [...] pancreatic cancer at age 67. LOCATION: [facility] BREAST COMPOSITION: Extremely dense, which lowers the [...] by: Jack Bain M.D. on 09/08/2021 at 13:59[facility] Vital Signs Date TimeVital SignValuePerforming VqrybhftgYkpprxyp57-16-1184 09:37-0400Body cifcrb988.2 cmBenjamin Murcek DO Work Phone: [phone] HospitalMngjqysjkh05-33-0441 09:37-0400Body mass index (BMI) [Ratio]31.32 kg/f4Jbcjkknksatya Villatoro DO Work Phone: [facility] HospitalKihwgaeknx31-17-4872 09:37-0400Body kmzmja18.72 kgBedonald Villatoro DO Work Phone: [phone]09-26-2025 13:29-0400Body rdrmki531.45 cmRonel Vides MD Work Phone: [phone])[address]09-26-2025 13:29-0400 Body mass index (BMI) [Ratio]31 kg/v3AvivhsRonel Vides MD Work Phone: [phone] [place], [place] 9195009-26-2025 13:29-0400 Body .22 kgRonel Vides MD Work Phone: [phone])[address] [place], [place] 9195009-26-2025 13:29-0400 Diastolic blood ekcstgxx22 mm[Hg]Ronel Vides MD Work Phone: [phone] [place], [place] 9195009-26-2025 13:29-0400 Heart rate84 /minRonel Vides MD Work Phone: [phone] [place], [place] 9195009-26-2025 13:29-0400 Systolic blood yzmzwxoo698 mm[Hg]Ronel Vides MD Work Phone: [phone]09-23-2025 17:43-0400 Body lfcylt282.45 cmRonel Vides MD Work Phone: [phone] [place], [place] 9195009-23-2025 17:43-0400 Body mass index (BMI) [Ratio]31.1 kg/q2YolcunRonel Vides MD Work Phone: [phone]09-23-2025 17:43-0400 Body swyvyujcxlz32.1 [degF]Ronel Vides MD Work Phone: [phone]09-23-2025 17:43-0400 Body .62 kgRonel Vides MD Work Phone: [facility]09-23-2025 17:43-0400 Diastolic blood cukjvfls36 mm[Hg]Ronel Vides MD Work Phone: [facility]09-23-2025 17:43-0400 Heart rate97 /Brandon Vides MD Work Phone: [facility]09-23-2025 17:43-0400 Respiratory rate14 /Brandon Vides MD Work Phone: [phone]09-23-2025 17:43-0400 SaO2% (BldA) [Mass fraction]98 %Ronel Vides MD Work Phone: [facility]09-23-2025 17:43-0400 Systolic blood mm[Hg]Ronel Vides MD Work Phone: [facility]10-17-2024 09:07-0400 Body yenxob404.72 cmAshtabula County Medical Center10-17-2024 09:07-0400Body mass index (BMI) [Ratio]29.7 kg/u1ZvldcyusoAshtabula County Medical Center10-17-2024 09:07-0400Body ddqamf39.9 kgAshtabula County Medical Center10-17-2024 09:07-0400Diastolic blood rbwmprta61 mm[Hg][facility] 02-28-2024 09:07-0400Heart rate97 /[facility] 02-28-2024 09:07-0400Systolic blood mm[Hg][facility] Encounters Encounter DateEncounter TypeCare ProviderFacilityStart: 03-04-2025 End: 30-77-2136Xnahgt flowsheetBrian Villatoro DO Work Phone: [facility] [place] OtolaryngologyStart: 03-04-2025 End: 98-76-7467Iborwx flowsheetBedonald Villatoro DO Work Phone: [facility] [place] OtolaryngologyStart: 03-04-2025 End: 54-92-7410Oshfxh outpatient new 45 minutesBensatya Villatoro DO Work Phone: [facility] [place] OtolaryngologyComment on above: Lymphadenopathy of right cervical regionStart: 03-04-2025 End: 04-46-5500elsftukfiuVKAKIWZF W MURCEKNot AvailableStart: 02-27-2025 ambulatoryRonel Vides MD Work Phone: [facility] Work Phone: Start: 14-38-5255Ehu-patient / Non-visitRonel Vides MD-[facility] Work Phone: Start: 02-11-2025 End: 99-50-5516tobhoijybdHNZQESAI [facility] Medical Centerjulissa [facility] Hospitaltart: 02-11-2025 Encounter for gynecological examination (general) (routine) without abnormal findingsKATProMedica Defiance Regional Hospitaltart: 02-06-2025 End: 17-53-9006gomnjhaxsmNasizl E Braun MD Work Phone: [facility] Work Phone: Start: 02-06-2025 End: 55-12-0732Zvmbwhr encounter procedureRonel Vides MD-[facility] Work Phone: Start: 02-03-2025 End: 80-02-8060wvdydbjoxgMrblta E Braun MD Work Phone: [facility] Work Phone: Start: 02-03-2025 End: 12-09-1640Pontxks encounter procedureЕлена Johnston BUSINESS AGENT-[facility] Work Phone: Start: 01-13-2025 End: 18-11-8793Wqksik flowsheetAlispenelope STARK Work Phone: [facility] DermatologyStart: 01-13-2025 End: 38-98-3283Pncdjf flowsheetJose Yeager PA Work Phone: [facility] [place] DermatologyStart: 01-13-2025 End: 64-51-3955bsffrhkncyZLYOZP L SHOBHANot AvailableStart: 01-13-2025 End: 72-59-1451Tsotwv follow up visit related to original pxJose STARK Work Phone: [facility] [place] DermatologyComment on above:Encounter for removal of sutures (Primary Dx)Start: 01-02-2025 End: 55-96-9944Okipuezbmp OrdersEmnell Rodriguze MD Work Phone: Genetic HealthcareComment on above: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)Start: 12-29-2024 End: 44-62-8202Tnsevm flowsshannonEmnell Rodriguez MD Work Phone: [facility] [place] DermatologyStart: 12-29-2024 End: 59-70-6460Unxnbn flowsJulianne Rodriguez MD Work Phone: [facility] DermatologyStart: 12-29-2024 End: 19-41-2927Dwhdisw encounter procedureEmnell Rodriguez MD Work Phone: [facility] DermatologyComment on above: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)Start: 12-29-2024 End: 72-35-2949wzdsqvnfzwGHPNY A PETITTINot AvailableStart: 12-05-2024 End: 10-63-2657Dvgjlu outpatient new 30 minutesAlison Nelson Shobha PA Work Phone: [facility] DERMComment on above:Melanocytic nevus of trunk (Primary Dx); Lentigines; Seborrheic keratosis; Neoplasm of unspecified behavior of bone, soft tissue, and skinStart: 12-05-2024 End: 37-57-4611moylpqdaknZWYALB Nelson AVERYANSNot AvailableStart: 75-11-4381Kcvkhjr encounter statusOhioHealth Dublin Methodist Hospitaltart: 02-28-2024 End: 54-02-1878fdbeeqcipyObnpmikglUniversity Hospitals [facility] Work Phone: Start: 02-28-2024 End: 34-59-5413Jipiabiwm for general adult medical examination without abnormal findingsOhioHealth Dublin Methodist Hospitaltart: 02-28-2024 End: 67-55-0532Gqcwxsi encounter procedureUnc Health [facility] Work Phone: Start: 04-25-2022 End: 44-74-6358vskdzxcqvlVK RONEL VIDESFacility:C5Jvvsy: 09-14-2021 End: 88-14-5917jxoblojwmzXZ MARCIA E BRAUNFacility:X8Dgbni: 22-25-4585Xesvsoqtd for general adult medical examination without abnormal findingsDR RONEL VIDES [facility] Hospitaltart: 09-08-2021 End: 84-70-5951cvfuqcoskyKI RONEL VIDESFacility:B7Uzluq: 09-08-2021 End: 04-98-3653Fqbkgforj for general adult medical examination without abnormal findingsDR RONEL VIDESFacility:H1 Procedures DateProcedureProcedure DetailPerforming ClinicianStart: 87-73-1913OQIB EXCISION Ailin Rodriguez MD Work Phone: Start: 13-76-0480EEHK REPAIRAilin Rodriguez MD Work Phone: Start: 12-05-2024 End: 05-57-7134TYED / NAIL BIOPSYAlison L Shobha STARK Work Phone: Plan of Treatment DateCare ActivityDetailAuthorStart: 12-08-2025 End: 75-90-6515Ttodsbx encounter procedureNOMS TSR DERMStart: 03-30-2025 End: 53-77-0442Qdpkorj encounter /17/2025 2:10 PM EST Office Visit [facility] [place] [facility] [address] [facility] [place] [id number] Jose Yeager PA [address] [place] [address] GABRIELA Sepulveda DermatologyStart: 03-23-2025 End: 67-89-3626Suhpaad encounter lsbkzgyec19/10/2025 3:45 PM EST Office Visit [facility] [address] [place], [id number] Brian Villatoro, DO [address] [place] [address] NOMMagdalene CarlsonBell OtolaryngologyStart: 03-18-2025 End: 43-00-8828ES Neck W contrast IVCT soft tissue neck w IV contrast Imaging Routine Lymphadenopathy of right cervical region Expected: 03/18/2025, Expires: 06/16/2025[facility] Work Phone: comment on above:Expected: 03/18/2025, Expires: 06/16/2025Start: 03-04-2025 End: 55-53-1231Uuecupg encounter qodczmzpz46/22/2025 9:30 AM EDT Office Visit [facility] [address] [place], [id number] Brian Villatoro, DO [address] [place] [address] ArrivedNO kR Otolaryngology Comment on above:ArrivedStart: 46-98-5172Phbonnh referralGalion Hospital Work Phone: Start: 01-13-2025 End: 13-73-3486Nrucegf encounter pejqpcdsv28/02/2025 8:50 AM EDT Office Visit [facility] [address] [place] [address] Jose Yeager, PA [address] [place] [address] GABRIELA Sepulveda DermatologyStart: 12-29-2024 End: 63-89-6328Jtmvqtv encounter gcdighkdg10/18/2025 10:00 AM EDT Office Visit [facility] [place] [facility] [address] [place], [id number] Ailin Rodriguez MD [address] [place] [address] ArrivedNOAZ Rk DermatologyComment on above:ArrivedCT Neck W [facility]ruder HospitalCT Sinuses WO contrastAshtabula County Medical CenterDermatopathology exam Dermatopathology exam Pathology and Cytology Timed Neoplasm of unspecified behavior of bone, soft tissue, and skin Release Upon Ordering for 1 Occurrences starting 12/05/2024[facility] Geogoer Work Phone: comtxal on above:Release Upon Ordering for 1 Occurrences starting 12/05/2024Dermatopathology examDermatopathology exam Pathology and Cytology Timed 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) Release Upon Ordering for 1 Occurrences starting 12/29/2024[facility] Work Phone: comcjas on above:Release Upon Ordering for 1 Occurrences starting 12/29/2024MG Breast - bilateral ScreeningAshtabula County Medical CenterPatient referralGalion Hospital Work Phone: Immunizations Immunization DateImmunizationNotesCare PzoxijvcCdexkgip82-52-2747rvdlzsy toxoid, reduced diphtheria toxoid, and acellular pertussis vaccine, adsorbedBenjamin Murleorak DO Work Phone: [facility] Healthcare Payers DatePayer CategoryPayerPolicy [id number] Insurance [id number] Health [id number] 2.840.1.307725.3.579.2. [id number] 2..840.1.427773.3.57[id number] 2.16.840.1.021290.3.57[id number] 2..840.1.831728.3.57[id number] 2..840.1.033729.3.57[id number] 2..840.1.284805.3.57[id number] 2..840.1.734167.3.57[id number] 2.840.1.010612.3.579.2.1259 Social History DateTypeDetailFacilityStart: 02-28-2024 End: 91-18-3118Fsnrgpt smoking status NHISNever smoked tobacco (finding) [facility] Hospitaltart: 80-11-6600Hkr Assigned At Community HealthFeMercy Health St. Rita's Medical Centertart: 22-49-4959Tsfqome use and exposure Smokeless tobacco non-userNOMS HealthcareStart: 12-05-2024 End: 83-53-7383Ybmggci of Social functionNOMS HealthcareStart: 12-05-2024 End: 68-43-7693Xlguxai use panelNOMS HealthcareStart: 17-01-3624Ehf assigned at birthNot on fileNOAZ HealthcareTobacco smoking status NHISTobacco smoking consumption unknownAllentown ClinicStart: 11-12-2024 End: 01-84-5154YanWwvcxyJdtonrctg ClinicSexFecalvary hospitale (finding)[facility] Clinical Notes 12-05-2024 to 03-04-2025 Note Date & JfzrZgjkXgvohtrd15-51-9178 History of Present illness Narrative* Brian Villatoro, DO - 03/04/2025 9:30 AM EDT Subjective Patient ID: HPI 44-year-old female referred for right cervical adenopathy. This all started about a month or so ago. She said she had a I infection which she did not get treated for a couple of days but when she didshe developed significant swelling around the parotid and upper neck. It was tender. She eventuallywas treated for the eye infection and today this seems to be much better. At some point during thisshe underwent a CT scan of the neck which I personally reviewed with her. She had a lot of enlargedlymph nodes in level 2 on the right side as well as a sizable lymph node within the right parotid. 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 Otherwise healthy. Review of Systems ROS The specialty specific review of systems is noncontributory except for that recorded in the intake questionnaire and /or described in the history of present illness. Objective ENT Physical Exam Physical Exam Constitutional: Appearance: Normal appearance. HENT: Head: Atraumatic. Ears: External ear shows no abnormality Bilateral ear canals are clear Tympanic membranes intact, no evidence of middle ear fluid or other pathology. Nose: External nose appears to be normal Nares patent. Septal deviation to the right No evidence of polyp, mass or pus bilaterally. Oral Cavity: No evidence of trismus Lips appear normal Dental good Tongue of normal size and configuration, floor of mouth mucosa clear. Buccal mucosa shows no evidence of ulceration, mass or other abnormality Hard palate soft palate mucosa intact with no evidence of mass, ulceration or other abnormality Uvula of normal size and configuration Oropharynx: Tonsils 2+ Posterior pharyngeal wall normal Neck: No evidence of palpable abnormality Thyroid without evidence of thyromegaly or mass. No cervical lymphadenopathy present. Cardiovascular: Rate and Rhythm: Normal rate and regular rhythm. . Skin: General: Skin is warm and dry. Neurological: General: No focal deficit present. Mental Status: alert and oriented to person, place, and time. THYROID ULTRASOUND EXAMINATION Indication: Cervical adenopathy After informed consent was obtained the patient was placed supine on the examining table. Patient was asked to extend the neck. Topical ultrasound jelly was used. The right lobe of the thyroid gland measures _ 4.4. Cm in greatest dimension. There were a couple scattered very small hypoechoic lesion scattered throughout the parenchyma measuring up to about 3 mm. Examination of the entire jugular chain on the right side from the skull base to the clavicle shows a couple of nonpathologic appearing lymph nodes the largest measuring about 1.1 cm in greatest dimension with a fatty hilum. The isthmus is unremarkable. The left lobe of the thyroid gland measures _ 3.8 cm greatest dimension. No identifiable nodular mass. No adenopathy in the left chain. There is no adenopathy in the central compartment. There is no appreciable adenopathy in either lateral neck. Assessment/Plan Fer was seen today for neck mass. Diagnoses and all orders for this visit: Lymphadenopathy of right cervical region Comments: By history and on today's exam I am not tremendously concerned about this and I made the patient aware. Orders: - CT soft tissue neck w IV contrast; Future - CT soft tissue neck w IV contrast This was probably a reactive lymphadenopathy secondary to the eye infection. However, I do want to look at these lymph nodes again with a CT scan. Therefore I am going to repeat the CT scan in 2 weeks and see her back following that. She should let me know immediately if she gets swelling in her right neck before then. documented in this encounterFitzgibbon HospitalOggrmvtsxj55-93-1083 Evaluation note* Diagnosis Onset Date Resolution Status Admit Date Neck swelling acuteSeptember 2024 5:40pmHistory of melanoma in situacuteSept2024 1:24pmLymphadenopathy of right cervical regionacuteSeptember 2024 1:24pm [facility] Work Phone: 1(626) 869-385909-02-2025 History of Present illness Narrative* LINCOLN Freitas [...] Next Visit: as scheduled documented in this encounterFitzgibbon HospitalEgbmcqktkq74-49-7638 History of Present illness Narrative* Ailin Rodriguez MD - 12/29/2024 10:00 AM EDT Images from the original note were not included. Subjective Fer Aleman is a 44 y.o. female who [...] OF TORSO EXCLUDING BREAST (HCC) Left Buttock [place] macule at biopsy site No cervical, axillary, [...] 1.3 x 0.6 cm Previous accession number: [id number] Diagnosis: (C43.59) Malignant melanoma of torso excluding [...] 14 days for s/r documented in this encounterFitzgibbon HospitalTrfwzpwlyy27-43-1680 History of Present illness Narrative* LINCOLN Freitas [...] Examined Right arm Examined Patient wearing nail german, Denies dark streaks on toenails Left arm [...] Next Visit: 1 year documented in this encounterFitzgibbon HospitalEvalumiddletown emergency department note* Diagnosis Onset Date Resolution Status Screening mammogram for [facility] examinationacute [facility] Work Phone: Evaluation note* Diagnosis Melanocytic nevus of trunk- Primary Benign neoplasm of skin of trunk, except scrotum Lentigines Seborrheic keratosis Neoplasm of unspecified behavior of bone, soft tissue, and skin documented in this encounter [facility] HospitalEvaluation note* Diagnosis 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)- Primary documented in this encounter [facility] HospitalEvaluation note* Diagnosis 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)- Primary [facility]* Diagnosis Encounter for removal of sutures- Primary documented in this encounter [facility] HospitalEvaluation noteNo assessment information availableGalion Hospital Work Phone: Evaluation note* Diagnosis Lymphadenopathy of right cervical region documented in this encounter [facility] HospitalHospital Discharge instructionsAmbulatory Orders* Referral to ENT Location: None Selected [facility] Work Phone: Reason for referral (narrative)No reason for referral information availableGalion Hospital Work Phone: Summary Purpose Family History No Family History Records Found Relationship Condition Age at Onset Recorded Date/T george father Diabetes mellitus Unknown DeceasedUnknownHypertensionUnknownmotherMalignant neoplasmUnknown Advance Directives No Advanced Directives Records Found [...] right cervical region February 06, 2025 1:24pm Chief Complaint Admit Date right swollen neck February 03, 2025 5:40pm Swollen Lymph Nodes February 06, 2025 1:24pm Referral Order February 27, 2025 8 :40am Additional Source Comments INFORMATION SOURCE (unrecogn ized section and content) DATE CREATED AUTHOR 05/05/2022 [facility] DATE CREATED AUTHOR AUTHOR'S ORGANIZ ATION 02/16/2025 [facility] DATE CREATED AUTHOR AUTHOR'S ORGANIZ ATION 03/05/2025 [facility] Care Teams (unrecognized sec tion and content) Team Status: Active Member Role Status Dates Ronel Vides MD Primary Care Provider Active Team Status: Inactive Member Role Status Dates Ronel Vides MD Primary Care Provide r, Attending Provider Active Start: February 28, 2024 End: February 28, 2024Team MemberRelationshipSpecialtyStart DateEnd Date Ailin Rodriguez MD [address] [place] [id number] Dermatology01/02/25 Team Status: Inactive Member Role Status Dates Ronel Vides MD Primary Care Provider Active Start: February 03, 2025 End: February 03, 2025Елена Johnston APRN FRONT DESK ATTENDANT-CAttending Provider ActiveStart: February 03, 2025 End: February 03, 2025 Team Status: Inactive Member Role Status Dates Ronel Vides MD Primary Care Provider Active Start: February 06, 2025 End: February 06, 2025Alyssia Cohn ProviderActiveStart: February 06, 2025 End: February 06, 2025 Team Status: Active Member Role Status Dates Roenl Vides MD Primary Care Provider Active Start: February 27, 2025 Alyssia Cohn ProviderActiveStart: February 27, 2025 Team MemberRelationshipSpecialtyStart DateEnd Date Ronel Vides MD [facility] Referrals ONLY PCP - GeneralFamily Crzwpizp22/22/25Team MemberRelationshipSpecialtyStart Date End Date Ronel Vides MD [facility] Referrals ONLY PCP - GeneralFamily Hbiyrfxt07/22/25 Goals (unrecognized section and content) Goals may be documented in a n alternate sectionGoals may be documented in an alternate sectionGoals may be documented in an alternate sectionGoals may be documented in an alternate section Reason for Visit (unrecogniz ed section and content) ReasonCommentsSkin CheckReasonCommentsExcisionReasonCommentsNeck MassNew patient : neck massSpecialtyDiagnoses / ProceduresReferred By ContactReferred To ContactOtolaryngology Diagnoses Localized enlarged lymph nodes Personal history of melanoma in-situ Localized swelling, mass and lump, neck Procedures AR UNLISTED EVALUATION [facility] MANAG[facility] SERVICE [facility] [facility] [address] [facility] [place] [address] Phone: tel: fax: Brian Villatoro, DO [address] [place] [address] Phone: tel: fax: Referral IDStatusReasonStart DateExpiration DateVisits RequestedVisits [id number] Source Comments (unrecognize d section and content) In the event this informatio n is protected by the Federal Confidentiality of Alcohol and Drug Abuse Patient Records regulations: The Federal rules restrict any use of the information to criminally investigate or prosecute any alcohol or drug abuse patient.[facility] FOR RECORDS PERTAINING TO PATIENTS WHO ARE [...] BE BASED ON THE PRIMARY CLINICAL RECORDS. [facility] [employer] [facility]. provides no warranty or guarantee of the accuracy or completeness of information in this document.
--- NOTE | 2025-04-24 09:55 | MM_ITS ---
Patient Name: FER PRATER MR#: [id number] : 1980 Exam Date: 04/24/2025 Ordering Doctor: DR WILLOW VIDSE M.D. RADIOLOGY REPORT PROCEDURE: MM TOMOSYNTHESIS SCREENING BI COMPARISON: MM TOMOSYNTHESIS SCREENING BI, 03/13/2024. MM TOMOSYNTHESIS SCREENING BI, 02/12/2023. MG MAMM SCREEN TATE W CAD, 04/02/2019. INDICATIONS: Screening Calculator Name NCI Breast Cancer Risk Assessment Tool 5 Year Breast Cancer Risk 3.70% Lifetime Breast Cancer Risk 27.90% Personal Breast Cancer No Personal Ovarian Cancer No Treatments None Family Cancers Mother with breast cancer at age 72; Aunt-maternal with breast cancer at age 54; Aunt-maternal with pancreatic cancer at age 65. LOCATION: [facility] BREAST COMPOSITION: The breasts are extremely dense, which lowers the sensitivity of mammography. FINDINGS: RIGHT BREAST: No significant suspicious finding. There is a similar focal asymmetry. Benign-appearing calcifications are present. LEFT BREAST: No significant suspicious finding. Benign-appearing calcifications are present. DIAGNOSTIC CATEGORY 2--BENIGN FINDING. NO CHANGE FROM COMPARISON. RECOMMENDATIONS: ROUTINE MAMMOGRAM AND CLINICAL EVALUATION IN 12 MONTHS. Dictated by: Vaibhav Alberto MD on 04/24/2025 at 14:40 Approved by: Vaibhav Alberto MD on 04/24/2025 at 14:48
== END 2025-04-24 08:46 | disposition home or self-care (01) ==
PROVIDERS: PCP Family Medicine; Visit Provider Family Medicine
DX: Z12.31 Encounter for screening mammogram for malignant neoplasm of breast (principal); Z80.3 Family history of malignant neoplasm of breast; Z80.8 Family history of malignant neoplasm of other organs or systems
CPT/HCPCS: 77063; 77067

== ENCOUNTER 2025-04-24 08:50 | Outpatient (OUT) | payer OTHER, SELFPAY ==
--- OUTSIDE RECORDS SUMMARY | 2025-04-24 08:54 | XMS_ITS | CCD ---
Author Organization [facility] Care Team Providers Care Textile Dyer Name Role Phone MAHOGANY, DR RONEL Nugent [...] Primary Care Provider UnavailAilin Valverde MD Unavailable [phone] Ronel Vides MD Primary Care Provider [phone] Елена Johnston APRN Attending Provider Ronel Vides MD Attending Provider [phone] NNAMDI DURAN Referring Unavailable RONEL VIDES Primary Care Unavailable Ronel Vides MD Primary Care Provider JOSE YEAGER Attending Unavailable AILIN RODRIGUEZ Attending Unavailable JOSE YEAGER Attending Unavailable BRIAN VILLATORO Attending Unavailable Medications Current Medications MedicationDrug Class(es)DatesSig (Normalized)Sig (Original)amoxicillin 875 mg / clavulanate 125 mg oral tablet (7 sources)Penicillin-class AntibacterialStart: 49-98-8780xsxfklmbwgr- clavulanate (Augmentin) 875-125 MG tablet 1 tablet 02/03/2025 ActiveStart: 02-03-2025 End: 59-38-7543tbky 1 tablet by mouth every twelve hoursdexamethasone 1 mg/ml / neomycin 3.5 mg/ml / polymyxin b 18770 unt/ml ophthalmic suspension (3 sources)Aminoglycoside Antibacterial, Polymyxin-class Antibacterial, CorticosteroidStart: 52-09-2541Eeeavdhh-Polymyxin B-Dexameth 3.5mg/mL-10,000 unit/mL-0.1 % drops,suspension Active DROPS OPHTHALMIC February 03, 2025 12:00am Complies with drug therapyibuprofen 800 mg oral tablet (13 sources)Nonsteroidal Anti-inflammatory DrugStart: 04-03-2024 End: 85-77-7341zzgo 1 tablet by mouth every eight hours as needed for headache Ibuprofen 800 mg tablet Active 0 .ROUTE .COMPLEX 90 May 19, 2024 11:20am TAKE 1 TABLET BY MOUTH EVERY 8 HOURS NEEDED FOR HEADACHE Complies with drug therapyStart: 02-28-2024 End: 05-23-3356bxum 1 tablet by mouth every eight hours as needed for headache Ibuprofen 800 mg tablet Discontinued 800 MG PO Every 8 hours as needed for headache 90 90 February 28, 2024 9:35am April 03, 2024 9:16am Kjccfkbtwifc-Kd-Yuvw-Minerals (Women's Daily Formula) 27-0.4 mg tablet (4 sources)Start: 58-57-6877vccg 1 tablet by mouth once daily Nwcxnaxigoqu-Hm-Wlwj-Minerals (Women's Daily Formula) 27-0.4 mg tablet Active TAB PO February 28, 2024 12:00am Complies with drug therapyStart: 02-28-2024 take 1 tablet by mouth once nwahzJfxcumaeurbo-Ym-Zbik-Minerals (Women's Daily Formula) 27-0.4 mg tablet Active TAB PO February 28, 2024 12:00ammupirocin 0.02 mg/mg topical ointment (2 sources)RNA Synthetase Inhibitor AntibacterialStart: 12-29-2024 End: 31-57-0889anoozeglb (Bactroban) 2 % ointment Indications: 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) Apply to affected area on buttock once daily with dressing change 22 g 12/29/2024 01/08/2025 Active Problems Active Problems Problem ClassificationProblemDateDocumented DateEpisodic/ChronicCancer of bone and connective tissue (6 sources)Malignant melanoma of trunk; 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]49-88-5240ZdvaquiNkgljqfqkqkxq and screening for infectious disease (1 source)Encounter for screening for human papillomavirus (HPV); Translations: [Encounter for screening for human papillomavirus (HPV)]Onset: 02-11-2025 EpisodicLymphadenitis (11 sources)Cervical lymphadenopathy; Translations: [Localized enlarged lymph nodes]Onset: 03-03-2025 Resolved: 933150-33-6438LlqjsnndRceckimtf of unspecified nature or uncertain behavior (2 sources)Neoplastic disease; Translations: [Neoplasm of unspecified behavior of bone, soft tissue, and skin]45-53-2126AzotlopsSwyrk aftercare (2 sources)Removal of sutures done; Translations: [Encounter for removal of sutures]15-84-3509TbqiloqlFkiyt and unspecified benign neoplasm (2 sources)Melanocytic nevus of trunk; Translations: [Melanocytic nevi of trunk] 05-55-0377QwcnfcmvGzxme skin disorders (2 sources)Lentiginosis; Translations: [Other melanin hyperpigmentation] 98-45-8718OfojflpdPhuad skin disorders (2 sources)Seborrheic keratosis; Translations: [Other seborrheic keratosis] 59-33-2354KyixgrlwKjcggahxeetq (1 source)R59.0 - Localized enlarged lymph nodes,Z86.006 - Personal history of melanoma in-situ,R22.1 - Localized swelling, mass and lump, neck Past or Other Problems Problem ClassificationProblemDateDocumented DateEpisodic/ChronicGenitourinary symptoms and ill-defined conditions (6 sources)Genuine stress incontinence; Translations: [Stress incontinence (female) (male)]Onset: 03-03-2025 Resolved: 090445-00-0199MmoprtgCmqqrwazp of skin (13 sources)H/O Malignant melanoma; Translations: [Personal history of malignant melanoma of skin]Onset: 03-03-2025 Resolved: 254509-21-0940TywmqfiqJgfbbwpipxpo breast conditions (12 sources)Disorder of breast, unspecified; Translations: [Other specified disorders of breast]Onset: 09-12-2021 Resolved: 33-91-5901JlplzsnaWvihu and delivery including normal (3 sources)Delivery normal; Translations: [Encounter for full-term uncomplicated delivery]Onset: 03-03-2025 Resolved: 370499-39-0785WqaziddhOazhd screening for suspected conditions (not mental disorders or infectious disease) (12 sources)Other abnormal and inconclusive findings on diagnostic imaging of breast; Translations: [Patient encounter status]Onset: 04-25-2022 Resolved: 14-08-2576UyzmrsbaOfwjw skin disorders (7 sources)Neck swelling; Translations: [Localized swelling, mass and lump, neck]Onset: 03-03-2025 Resolved: 330285-33-7058XrzcoroqByinalxm codes; unclassified (3 sources)Gestation period, 39 weeks; Translations: [39 weeks gestation of ]Onset: 03-03-2025 Resolved: 175611-17-4304Jujsqpmh Results Test NameValueInterpretationReference RangeFacilityHPV DNA High Riskon 64-79-9997JBQ InterpNormalMercy Health Tiffin HospitalComment on above:Result Comment: This test amplifies [...] other forensic purposes.Performed By: #### HPVH #### [facility] [place] [address] Micro Paleontologist: Aakash Mcneill MDHPV Type 16Not detectedNormalNOTDETMercy Connecticut HospiceComment on above:Performed By: #### HPVH #### [facility] [address] [place] [address] Micro Paleontologist: Aakash Mcneill MDHPV Type 18Not detectedNormProMedica Flower HospitalComment on above:Performed By: #### HPVH #### [facility] [place] [address] Micro Paleontologist: Aakash Mcneill MDOther High Risk HPVNot detectedNormalNOTThe [facility]Health System HospitalComment on above:Performed By: #### HPVH #### [facility] [address] [place] [address] Micro Paleontologist: Aakash Mcneill MDHPV DNA High Riskon 67-78-7334MPV Sample.THIN PREPNormToledo Hospital HospitalComment on above:Performed By: #### HPVH #### [address] [address] Micro Paleontologist: NATALIE DonaldourceCERVICAL MATERIALUniversity Hospitals Samaritan Medical CenterComment on above:Performed By: #### HPVH #### [address] [address] Micro Paleontologist: Aakash Mcneill [facility] – ADAytology Reporton [id number] report Cyto stain.thin prep Doc (Cvx/Vag)(NOTE) Path Number: [id number] DIAGNOSIS Imaged ThinPrep Pap - Cervical (1 [...] for other forensic purposes. Performed at [address] [address] ([phone] Source of Specimen: A: Imaged ThinPrep Pap - Cervical (1 monolayer slide) HPV Reflex?......................HPV Regardless Clinical History Z01.419 Routine urogynecology physician exam without abnormal findings Z11.51 Encounter for screening for HPV Processing Lab: [address] [address] Interpretation performed at [address] [id number] This Pap Test has been evaluated with [...] GYNECOLOGIC CYTOLOGY REPORT Patient Name: FER ALEMAN [facility] Rec: [id number] [facility] [employer] [facility] ANATOMIC PATHOLOGY [address] [place] [address]. [place], [place] [address] [facility] [place] [facility] Lesion length (cm): 1.3 Lesion width [...] 13.0 ml Estimated blood loss: 2.0 mlNOMS [facility] HospitalComplexity: Intermediate Final length (cm): 8.5 Reason [...] infection, uncontrollable bleeding, or complications. Dressing type: TowergateNo Panel InformationOrdered By: Dora Neville on 11-34-6063YEAD [employer] Work Phone: No Panel Informationon 46-63-4648Imvb of biopsy: tangential Informed consent: discussed and [...] taken yes Amount of lidocaine used: 1.0 [facility] CenterType [facility] biopsy: tangential Informed consent: discussed and [...] taken yes Amount of lidocaine used: 1.0 [facility] CenterMG MAMM DX 3D RT CADon 81-52-7789HK MAMM DX 3D RT CADPatient: FER ALEMAN Exam Date: 04/25/2022 : 1980 Gender:F Ordering : DR RONEL VIDES M.D. Admission #: [id number] Family : Order #: [id number] CLICK HERE TO VIEW EXAM RADIOLOGY REPORT PROCEDURE: MAMMOGRAM DIAGNOSTIC 3D RIGHT CAD, 04/25/2022, 13:46 ULTRASOUND BREAST RIGHT LIMITED, 04/25/2022, 14:36 COMPARISON: US BREAST RIGHT LIMITED, 09/08/2021. MG MAMM DIAGNOSTIC 3D TATE CAD, 09/08/2021. US BREAST RIGHT LIMITED, 07/14/2015. MAMMO POST BIOPSY RIGHT, 09/14/2021. INDICATIONS: Abnormal findings on diagnostic imaging of breast Calculator Name [facility] Breast Cancer Risk Assessment Tool 5 Year Breast Cancer Risk 2.90% Lifetime Breast Cancer Risk 29.10% Personal Breast Cancer No Personal Ovarian Cancer No Treatments None Family Cancers Mother with breast cancer at age 72; Aunt-maternal with breast cancer at age 54; Aunt-maternal with pancreatic cancer at age 65. LOCATION: [facility] BREAST COMPOSITION: Extremely dense, which lowers the [...] by: Jack Bain M.D. on 04/25/2022 at 14:56Pro[facility]ostoria Community HospitalUS BREAST RIGHT LIMITEDon 35-14-9002ZN BREAST RIGHT LIMITEDPatient: FER ALEMAN Exam Date: 04/25/2022 : 1980 Gender:F Ordering : DR RONEL VIDES M.D. Admission #: [id number] Family : Order #: [id number] CLICK HERE TO VIEW EXAM RADIOLOGY REPORT [...] pancreatic cancer at age 67. LOCATION: [facility] BREAST COMPOSITION: Extremely dense, which lowers the [...] by: Jack Bain M.D. on 04/25/2022 at 14:56Pro[facility]ostoria Community HospitalMAMMO POST BIOPSY RIGHTon 60-59-5469OMVLC POST BIOPSY RIGHTPatient: FER ALEMAN Exam Date: 09/14/2021 : 1980 Gender:F Ordering : DR RONEL VIDES M.D. Admission #: [id number] Family : Order #: [id number] CLICK HERE TO VIEW EXAM This report [...] M.D. on 09/20/2021 at 12:07 Approved by: Jcak Bain M.D. on 09/20/2021 at 12:07Pro[facility] Fostoria Community HospitalUS VAC ASST BX BRST RT W CLIPon 34-29-1817FE VAC ASST BX BRST RT W CLIP Patient: FER ALEMAN Exam Date: 09/14/2021 : 1980 Gender:F Ordering : DR RONEL VIDES M.D. Admission #: [id number] Family : Order #: [id number] CLICK HERE TO VIEW EXAM This report [...] by: Jack Bain M.D. on 09/20/2021 at 12:06[facility] AUTO DIFFon [id number] #0.1 103/ulNormal0.0-0.1The [facility] CincinnatiComment on above:Performed By: #### TSH, CMP, LIPID #### [facility] [address] [place] [address] Dr. Valery WalkerBasophils/100 WBC (Bld)0.6 %Normal0.2-2.0[facility] Comment on above:Performed By: #### TSH, CMP, LIPID #### [facility] [address] [place] [address] Dr. Valery Real #0.2 103/ulNormal0.0-0.7The [facility] CincinnatiComment on above: Performed By: #### TSH, CMP, LIPID #### [facility] [address] [place] [address] Dr. Valery Aburtoosinophils/100 WBC (Bld)2.8 %Normal0.9-7.0[facility] Comment on above:Performed By: #### TSH, CMP, LIPID #### [facility] [address] [place] [address] Dr. Valery Aburtorythrocyte distribution width (RBC) [Ratio]13.6 %Cvpbcf14.0-15.0 [facility] HospitalComment on above:Performed By: #### TSH, CMP, LIPID #### [facility] [address] [place] [address] Dr. Valery WalkerHematocrit (Bld) [Volume fraction]43.1 %Efffrb94.0-48.0The [facility] CincinnatiComment on above:Performed By: #### TSH, CMP, LIPID #### [facility] [address] [place] [address] Dr. Valery WalkerHemoglobin (Bld) [Mass/Vol]14.1 g/mTGrouxn56.0-16.0The [facility] CincinnatiComment on above:Performed By: #### TSH, CMP, LIPID #### [facility] [address] [place] [address] Dr. Valery Chua #0.02 10e3/ulNormal0.00-0.03The [facility] CincinnatiComment on above:Performed By: #### TSH, CMP, LIPID #### [facility] [address] [place] [address] Dr. Valery Chua %0.3 %Normal0.0-0.5The [facility] CincinnatiComment on above: Performed By: #### TSH, CMP, LIPID #### [facility] [address] [place] [address] Dr. Valery Salinas #3.4 103/ulNormal1.2-3.8The [facility] CincinnatiComment on above:Performed By: #### TSH, CMP, LIPID #### [facility] [address] [place] [address] Dr. Valery Monterohocytes/100 WBC (Bld)43.2 %Jdlkqh42.5-60.0The [facility] CincinnatiComun[facility] on above:Performed By: #### TSH, CMP, LIPID #### [facility] [address] [place] [address] Dr. Valery NealUAL DIFF REQNONormalThe [facility] CincinnatiComment on above: Performed By: #### TSH, CMP, LIPID #### [facility] [address] [place] [address] Dr. Valery Levy (RBC) [Entitic mass]28.0 seVxbexs73.7-34.0The [facility] CincinnatiComment on above:Performed By: #### TSH, CMP, LIPID #### [facility] [address] [place] [address] Dr. Valery Ramirez (RBC) [Mass/Vol]32.7 g/wEBkcvay24.9-35.2The [facility] CincinnatiComment on above:Performed By: #### TSH, CMP, LIPID #### [facility] [address] [place] [address] Dr. Valery Delatorre (RBC) [Entitic vol]85.5 xSChpadk96.0-99.0The [facility] CincinnatiComment on above:Performed By: #### TSH, CMP, LIPID #### [facility] [address] [place] [address] Dr. Valery Valdez #0.4 103/ulNormal0.3-0.8The [facility] CincinnatiComment on above:Performed By: #### TSH, CMP, LIPID #### [facility] [address] [place] [address] Dr. Valery Zavalaocytes/100 WBC (Bld)4.7 %Normal1.7-12.0The [facility] Comment on above:Performed By: #### TSH, CMP, LIPID #### [facility] [address] [place] [address] Dr. Valery Valdez #3.8 103/ulNormal1.4-6.5The [facility] CincinnatiComment on above:Performed By: #### TSH, CMP, LIPID #### [facility] [address] [place] [address] Dr. Valery Alejandrautrophils/100 WBC (Bld)48.4 %Cmglwd89.0-75.0The [facility] CincinnatiComment on above:Performed By: #### TSH, CMP, LIPID #### [facility] [address] [place] [address] Dr. Valery Hillman mean volume (Bld) [Entitic vol]10.3 fLNormal9.5-13.5The [facility] CincinnatiComment on above:Performed By: #### TSH, CMP, LIPID #### [facility] [address] [place] [address] Dr. Valery WalkerPLT286 103/mvKhpifn671-761Fml [facility] on above: Performed By: #### TSH, CMP, LIPID #### [facility] [address] [address] [address] Valery WalkerRBC5.04 106/ulNormal4.20-5.40The [facility] on above:Performed By: #### TSH, CMP, LIPID #### [facility] [address] [address] [address] Valery WalkerWBC7.9 103/ulNormal4.0-11.0The [facility] on above: Performed By: #### TSH, CMP, LIPID #### [facility] [address] [address] [address] Valery WalkerGLYCOHEMOGLOBIN A1Con 59-52-4833GKR RECOMMENDATIONSEE BELOWUc HealthComuniversity of michigan hospital on above:Result Comment: ADA RECOMMENDED LIMIT 4.0 - 6.0 ADA THERAPEUTIC TARGET < 7.0 ACTION SUGGESTED > 7.0Performed By: #### A1C #### [facility] [address] [address] [address] Valery WalkerGlucose [Mass/Vol]108 mg/dLNoBarnesville Hospital on above:Performed By: #### A1C #### [facility] [address] [place] [address] Dr. Valery WalkerHbA1c (Bld) [Mass fraction]5.4 %Normal4.5-6.2The [facility] on above:Performed By: #### A1C #### [facility] [address] [place] [address] Dr. Valery WalkerLIPID PROFILEon 41-34-7753UAJC-HDL RATIO NORMSEE [facility] on above:Result Comment: 3.3 - 4.4 LOW RISK 4.4 - 7.1 AVERAGE RISK 7.1 - 11.0 MODERATE RISK >11.0 HIGH RISKPerformed By: #### TSH, CMP, LIPID #### [facility] [address] [address] [address] Valery WalkerCholesterol [Mass/Vol]191 mg/dLNormal<=200[facility] Comment on above:Performed By: #### TSH, CMP, LIPID #### [facility] [address] [address] [address] Valery WalkerCholesterol in HDL [Mass/Vol]56 mg/vCSmblhi13-33Byb [facility] CincinnatiComment on above:Performed By: #### TSH, CMP, LIPID #### [facility] [address] [address] [address] Valery Pachecoesterol in LDL [Mass/Vol]115.6 mg/dLNoMadison HealthComment on above:Performed By: #### TSH, CMP, LIPID #### [facility] [address] [place] [address] Dr. Valery Abel.total/Cholesterol in HDL [Mass ratio]3.4 {ratio} NormalThe [facility] CincinnatiComment on above:Performed By: #### TSH, CMP, LIPID #### [facility] [address] [address] [address] Valery Orozco NORMAL> or = 60 mg/dl - LOW CARDIOVASCULAR RISK <40 mg/dl - HIGH CARDIOVASCULAR RISKProMedica Fostoria Community HospitalComment on above:Performed By: #### TSH, CMP, LIPID #### [facility] [address] [place] [address] Dr. Valery Khan CALC NORMALSEE BELOWProMedica Fostoria Community HospitalComment on above:Result Comment: <100 mg/dl OPTIMAL 100 - 129 mg/dl NEAR OR ABOVE OPTIMAL 130 - 159 mg/dl BORDERLINE HIGH 160 - 189 mg/dl HIGH >190 mg/dl VERY HIGH Performed By: #### TSH, CMP, LIPID #### [facility] [address] [address] [address] Valery WalkerTriglyceride [Mass/Vol]97 mg/dLNormal<=150The [facility] Comment on above:Performed By: #### TSH, CMP, LIPID #### [facility] [address] [address] [address] Valery HernandezLDL CALC19.4 mg/dLNormalThe [facility] Lake Estates HospitalComment on above: Performed By: #### TSH, CMP, LIPID #### [facility] [address] [address] [address] Valery WalkerMG MAMM DIAGNOSTIC 3D TATE CADon 45-96-1284PV MAMM DIAGNOSTIC 3D TATE CADPatient: FER ALEMAN Exam Date: 09/08/2021 : 1980 Gender:F Ordering : DR RONEL VIDES M.D. Admission #: [id number] Family : Order #: [id number] CLICK HERE TO VIEW EXAM RADIOLOGY REPORT [...] pancreatic cancer at age 67. LOCATION: [facility] BREAST COMPOSITION: Extremely dense, which lowers the [...] by: Jack Bain M.D. on 09/08/2021 at 13:59NormalThe [facility] CincinnatiPROF 14(COMP METB)on 61-55-4665Yardzfa [Mass/Vol]3.8 g/dLNormal3.4-5.0 The [facility] CincinnatiComment on above:Performed By: #### TSH, CMP, LIPID #### [facility] [address] [address] [address] Valery WalkerAlbumin/Globulin [Mass ratio]0.9 {ratio}NormalThe [facility] CincinnatiComment on above:Performed By: #### TSH, CMP, LIPID #### [facility] [address] [address] [address] Valery Jones [Catalytic activity/Vol]71 U/SAoedls70-516Cbl [facility]ment on above:Performed By: #### TSH, CMP, LIPID #### [facility] [address] [address] [address] Valery Clark [Catalytic activity/Vol]15 U/WFvftam44-51Wow [facility] CincinnatiComment on above:Performed By: #### TSH, CMP, LIPID #### [facility] [address] [address] [address] Valery Payton gap [Moles/Vol]13.3 mmol/LNormalThe [facility] Comment on above:Performed By: #### TSH, CMP, LIPID #### [facility] [address] [address] [address] Valery WalkerAST [Catalytic activity/Vol]12 U/LCritically kwd26-65Ktd [facility] on above:Performed By: #### TSH, CMP, LIPID #### [facility] [address] [address] [address] Valery WalkerBilirubin [Mass/Vol]0.5 mg/dLNormal0.2-1.0The [facility] Comment on above:Performed By: #### TSH, CMP, LIPID #### [facility] [address] [address] [address] Valery WalkerCalcium [Mass/Vol]8.6 mg/dLNormal8.5-10.1The [facility] Comment on above:Performed By: #### TSH, CMP, LIPID #### [facility] [address] [place] [address] Dr. Valery WalkerChloride [Moles/Vol]104 mmol/JXausts86-040Dzs [facility] Comment on above:Performed By: #### TSH, CMP, LIPID #### [facility] [address] [place] [address] Dr. Valery WalkerCO2 [Moles/Vol]25.4 mmol/WNgzntw14.0-32.0The [facility] Comment on above:Performed By: #### TSH, CMP, LIPID #### [facility] [address] [place] [address] Dr. Valery WalkerCreatinine [Mass/Vol]0.67 mg/dLNormal0.55-1.02[facility] HospitalComment on above:Performed By: #### TSH, CMP, LIPID #### [facility] [address] [place] [address] Dr. Valery AburtoGFR-AF CYPRIOT>60Normal>=60The [facility] CincinnatiComment on above:Performed By: #### TSH, CMP, LIPID #### [facility] [address] [place] [address] Dr. Valery Schmidt-NON AF CYPRIOT>60Normal>=60The [facility] CincinnatiComment on above:Performed By: #### TSH, CMP, LIPID #### [facility] [address] [place] [address] Dr. Valery WalkerGlobulin (S) [Mass/Vol]4.0 g/dLNormalThe [facility] CincinnatiComment on above:Performed By: #### TSH, CMP, LIPID #### [facility] [address] [place] [address] Dr. Valery WalkerGlucose [Mass/Vol]99 mg/qDMustqd39-346Fjb [facility] Comment on above:Performed By: #### TSH, CMP, LIPID #### [facility] [address] [place] [address] Dr. Valery WalkerPotassium [Moles/Vol]4.7 mmol/LNormal3.5-5.1The [facility] [facility] Comment on above:Performed By: #### TSH, CMP, LIPID #### [facility] [address] [place] [address] Dr. Valery WalkerProtein [Mass/Vol]7.8 g/dLNormal6.1-8.2The [facility] Comment on above:Performed By: #### TSH, CMP, LIPID #### [facility] [address] [place] [address] Dr. Valery WalkerSodium [Moles/Vol]138 mmol/WJkxnxf688-600Lkp [facility] Comment on above:Performed By: #### TSH, CMP, LIPID #### [facility] [address] [place] [address] Dr. Valery WalkerUrea nitrogen [Mass/Vol]14.0 mg/dLNormal7.0-18.0[facility] on [facility]:Performed By: #### TSH, CMP, LIPID #### [facility] [address] [place] [address] Dr. Valery Shipman nitrogen/Creatinine [Mass ratio]20.9 mg/mgNoMadison HealthComment on above:Performed By: #### TSH, CMP, LIPID #### [facility] [address] [place] [address] Dr. Valery Hawthorne 81-68-9995BLT1.292 uIU/mLNormal0.470-4.680The [facility] on [facility]:Performed By: #### TSH, CMP, LIPID #### [facility] [address] [place] [address] Dr. Valery Fonseca [facility] BELOWProMedica Fostoria Community HospitalComment on above: Result Comment: <0.34 UIU/ml HYPERTHYROID 0.34-5.60 UIU/ml EUTHYROID >5.60 UIU/ml HYPOTHYROIDPerformed By: #### TSH, CMP, LIPID #### [facility] [address] [place] [address] Dr. Yilan ChangUS BREAST RIGHT LIMITEDon [id number] BREAST RIGHT LIMITED Patient: FER ALEMAN Exam Date: 09/08/2021 : 1980 Gender:F Ordering : DR RONEL VIDES M.D. Admission #: [id number] Family : Order #: [id number] CLICK HERE TO VIEW EXAM RADIOLOGY REPORT [...] pancreatic cancer at age 67. LOCATION: [facility] BREAST COMPOSITION: Extremely dense, which lowers the [...] by: Jack Bain M.D. on 09/08/2021 at 13:59[facility] Vital Signs Date TimeVital SignValuePerforming YedvytrbbAgtgtzve00-56-5601 09:37-0400Body hahcjh044.2 cmBenjamin Murcek DO Work Phone: [phone]oplinEwddggtryk76-65-0977 09:37-0400Body mass index (BMI) [Ratio]31.32 kg/q8Esrnfezgsatya Villatoro DO Work Phone: [facility]oplinWztcmqyafa80-75-6603 09:37-0400Body afhigh71.72 kgBedonald Villatoro DO Work Phone: [phone])[address]09-26-2025 13:29-0400Body zsivjh228.45 cmRonel Vides MD Work Phone: [phone])[address]09-26-2025 13:29-0400 Body mass index (BMI) [Ratio]31 kg/i1LprvqrRonel Vides MD Work Phone: [phone] [place], [place] 4631909-26-2025 13:29-0400 Body .22 kgRonel Vides MD Work Phone: [phone] [place], [place] 4631909-26-2025 13:29-0400 Diastolic blood mm[Hg]Ronel Vides MD Work Phone: [phone] [place], [place] 4631909-26-2025 13:29-0400 Heart rate84 /minRonel Vides MD Work Phone: [phone] [place], [place] 4631909-26-2025 13:29-0400 Systolic blood ognpusmb353 mm[Hg]Ronel Vides MD Work Phone: [phone]09-23-2025 17:43-0400 Body zyijin241.45 cmRonel Vides MD Work Phone: [phone] [place], [place] 4631909-23-2025 17:43-0400 Body mass index (BMI) [Ratio]31.1 kg/x1ObcbibRonel Vides MD Work Phone: [phone]09-23-2025 17:43-0400 Body qaquhstazyb38.1 [degF]Ronel Vides MD Work Phone: [phone]09-23-2025 17:43-0400 Body jvfewm39.62 kgRonel Vides MD Work Phone: [facility]09-23-2025 17:43-0400 Diastolic blood mm[Hg]Ronel Vides MD Work Phone: [facility]09-23-2025 17:43-0400 Heart rate97 /Brandon Vides MD Work Phone: [facility]09-23-2025 17:43-0400 Respiratory rate14 /Brandon Vides MD Work Phone: [phone]09-23-2025 17:43-0400 SaO2% (BldA) [Mass fraction]98 %Ronel Vides MD Work Phone: [facility]09-23-2025 17:43-0400 Systolic blood tqayrwok827 mm[Hg]Ronel Vides MD Work Phone: [facility]10-17-2024 09:07-0400 Body kilcet009.[address] [facility]10-17-2024 09:07-0400Body mass index (BMI) [Ratio]29.7 kg/y0SuwojpzwaMercy Health St. [facility]10-17-2024 09:07-0400Body somfaa62.[address] [facility]10-17-2024 09:07-0400Diastolic blood sueyindy86 mm[Hg][facility] 02-28-2024 09:07-0400Heart rate97 /[facility] 02-28-2024 09:07-0400Systolic blood absrggnw301 mm[Hg][facility] Encounters Encounter DateEncounter TypeCare ProviderFacilityStart: 03-04-2025 End: 84-03-1414Fmjgsp flowsheetBrian Villatoro DO Work Phone: [facility] [place] [facility]olaryngologyStart: 03-04-2025 End: 98-98-2564Tucmqz flowsheetBedonald Villatoro DO Work Phone: [facility] [place] OtolaryngologyStart: 03-04-2025 End: 19-94-6976Fyzhwq outpatient new 45 minutesBensatya Villatoro DO Work Phone: [facility] [place] OtolaryngologyComment on above: Lymphadenopathy of right cervical regionStart: 03-04-2025 End: 34-29-1850cvhgpenpvuFBOPOWEF W MURCEKNot AvailableStart: 02-27-2025 ambulatoryRonel Vides MD Work Phone: [facility] Work Phone: Start: 21-72-0746Uni-patient / Non-visitRonel Vides MD-[facility] Work Phone: Start: 02-11-2025 End: 87-55-9331jdpnxyarotCUTMKJIS [facility] Hospitaljulissa [facility] Hospitaltart: 02-11-2025 Encounter for gynecological examination (general) (routine) without abnormal findingsKATNationwide Children's Hospitaltart: 02-06-2025 End: 80-27-0439mhkkbapfdbRtkplk E Braun MD Work Phone: [facility] Work Phone: Start: 02-06-2025 End: 50-43-2857Wrzakrq encounter procedureRonel Vides MD-[facility] Work Phone: Start: 02-03-2025 End: 39-96-4957iybsxsffcgVpnrvv E Braun MD Work Phone: [facility] Work Phone: Start: 02-03-2025 End: 50-57-8991Gtnmtvz encounter procedureЕлена Johnston SENIOR BUSINESS ARCHITECT-[facility] Work Phone: Start: 01-13-2025 End: 32-46-9602Nsvuec flowsheetAlispenelope STARK Work Phone: [facility] DermatologyStart: 01-13-2025 End: 27-93-6638Psfqqc flowsheetJose Yeager PA Work Phone: [facility] [place] DermatologyStart: 01-13-2025 End: 33-84-6341kimebknklcIONAXC L SHOBHANot AvailableStart: 01-13-2025 End: 29-65-1551Sxjoti follow up visit related to original pxJose STARK Work Phone: [facility] [place] DermatologyComment on above:Encounter for removal of sutures (Primary Dx)Start: 01-02-2025 End: 94-28-7324Sydboxnnpw OrdersEmnell Rodriguez MD Work Phone: Genetic HealthcareComment on above: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)Start: 12-29-2024 End: 43-66-8065Vqtcmb flowsshannonEmnell Rodriguez MD Work Phone: [facility] [place] DermatologyStart: 12-29-2024 End: 88-08-4282Apacsg flowsJulianne Rodriguez MD Work Phone: [facility] [place] DermatologyStart: 12-29-2024 End: 78-66-8833Ramazad encounter procedureEmnell Rodriguez MD Work Phone: [facility] DermatologyComment on above: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)Start: 12-29-2024 End: 11-84-0861jvzjmkrmxwHZYHW A PETITTINot AvailableStart: 12-05-2024 End: 13-33-7202Vssdsx outpatient new 30 minutesAlison [place] Shobha PA Work Phone: [facility] TSR DERMComment on above:Melanocytic nevus of trunk (Primary Dx); Lentigines; Seborrheic keratosis; Neoplasm of unspecified behavior of bone, soft tissue, and skinStart: 12-05-2024 End: 42-21-4761yyugrsdcbyYZBCJD [place] AVERYANSNot AvailableStart: 70-71-5586Xvcatci encounter statusProtestant Hospitaltart: 02-28-2024 End: 79-91-9329pctpcahqdxFjwjwiyjiMercy Health – [facility] Work Phone: Start: 02-28-2024 End: 06-66-2132Njcuvedwx for general adult medical examination without abnormal findingsProtestant Hospitaltart: 02-28-2024 End: 38-51-8237Rgqclji encounter procedureLifecare Hospitals [facility] Work Phone: Start: 04-25-2022 End: 40-67-8582bxhsufmfqyTT RONEL VIDESFacility:D2Phgee: 09-14-2021 End: 72-74-6009jiobzvfpmgZY MARCIA E BRAUNFacility:O1Jsgqr: 12-75-1244Pshqpldfs for general adult medical examination without abnormal findingsDR RONEL VIDES [facility]tart: 09-08-2021 End: 92-68-4271jftcwhrdfcWP RONEL VIDESFacility:S1Siusr: 09-08-2021 End: 98-49-6552Dlmlrckfq for general adult medical examination without abnormal findingsDR RONEL VIDESFacility:H1 Procedures DateProcedureProcedure DetailPerforming ClinicianStart: 48-60-2565OEUL EXCISION Ailin Rodriguez MD Work Phone: Start: 19-00-1586JLTR REPAIRAilin Rodriguez MD Work Phone: Start: 12-05-2024 End: 61-60-8402RLTQ / NAIL BIOPSYAlison L Shobha STARK Work Phone: Plan of Treatment DateCare ActivityDetailAuthorStart: 12-08-2025 End: 52-20-4735Zjgouma encounter procedureNOMS TSR DERMStart: 03-30-2025 End: 32-42-9911Spfiqiq encounter qcxnnbaaf98/17/2025 2:10 PM EST Office Visit [facility] [place] [facility] [address] [facility] [place] [address] Jose Yeager PA [address] [place] [address] GABRIELA Sepulveda DermatologyStart: 03-23-2025 End: 76-03-4170Eaumitz encounter elpstmrtb29/10/2025 3:45 PM EST Office Visit [facility] [address] [place], [id number] Brian Villatoro, DO [address] [place] [address] NOMMagdalene CarlsonGeneva OtolaryngologyStart: 03-18-2025 End: 46-41-4768TC Neck W contrast IVCT soft tissue neck w IV contrast Imaging Routine Lymphadenopathy of right cervical region Expected: 03/18/2025, Expires: 06/16/2025[facility] Work Phone: comment on above:Expected: 03/18/2025, Expires: 06/16/2025Start: 03-04-2025 End: 48-74-8041Kcosori encounter fghwaepbk88/22/2025 9:30 AM EDT Office Visit [facility] [address] [place], [id number] Brian Villatoro, DO [address] [place] [address] ArrivedNO Rk Otol[facility] Comment on above:ArrivedStart: 53-93-9327Lfkhrbm referralPaulding County Hospital Work Phone: Start: 01-13-2025 End: 34-09-9152Wpjfdir encounter aqszgwsmj00/02/2025 8:50 AM EDT Office Visit [facility] [address] [place] [address] Jose Yeager, PA [address] [place] [address] GABRIELA Sepulveda DermatologyStart: 12-29-2024 End: 58-03-3354Raqqdgd encounter jblnzongf45/18/2025 10:00 AM EDT Office Visit [facility] [place] [facility] [address] [place], [id number] Ailin Rodriguez MD [address] [place] [address] ArrivedNODC Rk DermatologyComment on above:ArrivedCT Neck W [facility] HospitalCT Sinuses WO contrastMercy Health St. [facility] Warren HospitalDermatopathology exam Dermatopathology exam Pathology and Cytology Timed Neoplasm of unspecified behavior of bone, soft tissue, and skin Release Upon Ordering for 1 Occurrences starting 12/05/2024[facility] healthfinch Work Phone: commfsv on above:Release Upon Ordering for 1 Occurrences starting 12/05/2024Dermatopathology examDermatopathology exam Pathology and Cytology Timed 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) Release Upon Ordering for 1 Occurrences starting 12/29/2024[facility] Work Phone: comwmit on above:Release Upon Ordering for 1 Occurrences starting 12/29/2024MG Breast - bilateral ScreeningMercy Health St. [facility] Warren HospitalPatient referralPaulding County Hospital Work Phone: Immunizations Immunization DateImmunizationNotesCare JjzvsjpoTkzuslit58-55-3275wbxeavt toxoid, reduced diphtheria toxoid, and acellular pertussis vaccine, adsorbedBenjamin Murleorak DO Work Phone: [facility] Healthcare Payers DatePayer CategoryPayerPolicy [id number] Health Insurance [id number] Health [id number] 2.840.1.283296.3.579.2. [id number] 2..840.1.378426.3.57[id number] 2.16.840.1.010832.3.57[id number] 2..840.1.421169.3.57[id number] 2..840.1.312873.3.57[id number] 2..840.1.604362.3.57[id number] 2..840.1.513906.3.57[id number] 2.840.1.851811.3.579.2.1259 Social History DateTypeDetailFacilityStart: 02-28-2024 End: 90-70-7919Vxxjhvm smoking status NHISNever smoked tobacco (finding) [facility] Hospitaltart: 00-14-3078Nfw Assigned At Critical Access HospitalFeAdena Pike Medical Centertart: 00-37-0421Fguqfft use and exposure Smokeless tobacco non-userNOMS HealthcareStart: 12-05-2024 End: 58-03-2477Lvpsamv of Social functionNOMS HealthcareStart: 12-05-2024 End: 85-87-6636Efgolhj use panelNOMS HealthcareStart: 36-94-7833Kpu assigned at birthNot on fileNODC HealthcareTobacco smoking status NHISTobacco smoking consumption unknownMabton ClinicStart: 11-12-2024 End: 89-71-3864RxzFzwqnqZqpndahdy ClinicSexFest. [facility] (finding)[facility] Clinical Notes 12-05-2024 to 03-04-2025 Note Date & TzfiZcoePalsdoym67-43-1080 History of Present illness Narrative* Brian Villatoro, [...] right neck before then. documented in this encounterMercy Hospital JoplinIjsaijzzly66-37-7896 Evaluation note* Diagnosis Onset Date Resolution Status Admit Date Neck swelling acuteSeptember 2024 5:40pmHistory of melanoma in situacuteSept2024 1:24pmLymphadenopathy of right cervical regionacuteSeptember 2024 1:24pm [facility] Work Phone: 1(333) 931-376909-02-2025 History of Present illness Narrative* LINCOLN Freitas [...] Next Visit: as scheduled documented in this encounterMercy Hospital JoplinRkxrdekpjh38-11-8540 History of Present illness Narrative* Ailin Rodriguez [...] OF TORSO EXCLUDING BREAST (HCC) Left Buttock [place] macule at biopsy site No cervical, axillary, [...] 1.3 x 0.6 cm Previous accession number: [id number] Diagnosis: (C43.59) Malignant melanoma of torso excluding [...] 14 days for s/r documented in this encounterMercy Hospital JoplinZmcbviutnu40-72-4396 History of Present illness Narrative* LINCOLN Freitas [...] Examined Right arm Examined Patient wearing nail wolof, Denies dark streaks on toenails Left arm [...] Next Visit: 1 year documented in this encounterMercy Hospital JoplinEvaluwilmington hospital note* Diagnosis Onset Date Resolution Status Screening mammogram for breast [facility] examinationacute [facility] Work Phone: Evaluation note* Diagnosis Melanocytic nevus of trunk- Primary Benign neoplasm of skin of trunk, except scrotum Lentigines Seborrheic keratosis Neoplasm of unspecified behavior of bone, soft tissue, and skin documented in this encounter [facility]oplinEvaluation note* Diagnosis 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)- Primary documented in this encounter [facility]oplinEvaluation note* Diagnosis 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)- Primary [facility]* Diagnosis Encounter for removal of sutures- Primary documented in this encounter [facility]oplinEvaluation noteNo assessment information availablePaulding County Hospital Work Phone: Evaluation note* Diagnosis Lymphadenopathy of right cervical region documented in this encounter [facility]oplinHospital Discharge instructionsAmbulatory Orders* Referral to ENT Location: None Selected [facility] Work Phone: Reason for referral (narrative)No reason for referral information availablePaulding County Hospital Work Phone: Summary Purpose Family History [...] section and content) DATE CREATED AUTHOR 05/05/2022 [facility] DATE CREATED AUTHOR AUTHOR'S ORGANIZ ATION 02/16/2025 [facility] DATE CREATED AUTHOR AUTHOR'S ORGANIZ ATION 03/05/2025 [facility] Care Teams (unrecognized sec tion and content) Team Status: Active Member Role Status Dates Ronel Vides MD Primary Care Provider Active Team Status: Inactive Member Role Status Dates Ronel Vides MD Primary Care Provide r, Attending Provider Active Start: February 28, 2024 End: February 28, 2024Team MemberRelationshipSpecialtyStart DateEnd Date Ailin Rodriguez MD [address] [place] [id number] Dermatology01/02/25 Team Status: Inactive Member Role Status Dates Ronel Vides MD Primary Care Provider Active Start: February 03, 2025 End: February 03, 2025Елена Johnston APRN CUSTODIAL MAINTENANCE WORKER-CAttending Provider ActiveStart: February 03, 2025 End: February [...] MD [facility] Referrals ONLY PCP - GeneralFamily Rucztmts85/22/25Team MemberRelationshipSpecialtyStart Date End Date Ronel Vides MD [facility] Referrals ONLY PCP - GeneralFamily Jzmghkot57/22/25 Goals (unrecognized section and content) Goals may [...] Localized swelling, mass and lump, neck Procedures [place] UNLISTED EVALUATION AND MANAGEMENT SERVICE [facility] [address] [facility] [address] Phone: tel: fax: Brian Villatoro, DO [address] [place] [address] Phone: tel: fax: Referral IDStatusReasonStart DateExpiration DateVisits RequestedVisits [id number]/17/20254/15/202611 Source Comments (unrecognize d section and content) In the event this informatio n is protected by the Federal Confidentiality of Alcohol and Drug Abuse Patient Records regulations: The Federal rules restrict any use of the information to criminally investigate or prosecute any alcohol or drug abuse patient.[facility] FOR RECORDS PERTAINING TO PATIENTS WHO ARE [...] BE BASED ON THE PRIMARY CLINICAL RECORDS. [facility] [employer] [facility]. provides no warranty or guarantee of the accuracy or completeness of information in this document.
--- NOTE | 2025-04-24 09:04 | CT_ITS ---
The [address] [address] Patient Name: FER PRATER MRN: [id number] date: 1980 Sex: F Assigned Patient Location: [facility] Current Patient Location: [facility] Accession/Order Number: [id number] Exam Date: 04/24/2025 09:10 Report Date: 04/24/2025 20:35 At the request of: JUSTEN WALDEN Procedure: CT soft tissue neck w con CT soft tissue neck w con 04/24/2025 9:19 AM SIGNS AND SYMPTOMS: ^Lymphadenopathy Or Right Cervical Region CONTRAST: TECHNIQUE: Multidetector CT axial slices of the soft tissues of the neck were obtained with IV contrast. Sagittal and coronal reformats were reconstructed. CT was performed with one or more of the following dose reduction techniques: Automated exposure control, adjustment of the mA and/or kV according to patient size, or use of iterative reconstruction technique. COMPARISON: 02/26/2025 FINDINGS: Mildly enlarged right level 2 lymph nodes again identified overall substantially decreased since size with medical billing representative lymph node currently 8 mm, previously 14 cm in short axis dimension. The prominence right parotid gland lymph node is stable Otherwise, the nasopharynx, oropharynx, hypopharynx, glottic, and subglottic regions are unremarkable. Similar appearance of the mildly heterogeneous, moderately enlarged faucial tonsils demonstrating tigroid enhancement pattern The parotid glands, submandibular, and the thyroid gland are within normal limits. The visualized lung parenchyma shows no acute pathology. No acute bony abnormalities are appreciated. CT/CT soft tissue neck w con IMPRESSION: Diminished size of the right level 2 lymph nodes suggestive of favorable treatment course. Tonsillar enlargement may raise possibility for tonsillitis. Impression dictated by: Damian Chen M.D. 04/24/2025 8:35 PM Dictation Location: [place] [address] Electronically authenticated by: [id number] Y Date: 04/24/2025 20:35
== END 2025-04-24 08:51 | disposition home or self-care (01) ==
LOC: CT 08:51
PROVIDERS: PCP Family Medicine; Visit Provider Otolaryngology
DX: R59.0 Localized enlarged lymph nodes (principal); J35.1 Hypertrophy of tonsils
CPT/HCPCS: 70491; Q9967